=== PATIENT | female | born 2000 | race Caucasian/White ===

== ENCOUNTER 2022-04-16 14:56 | Inpatient (IN) | payer BC, SELFPAY ==
[2022-04-16 15:08] VITALS: BP 128/70; PULSE 65
--- NOTE | 2022-04-16 15:11 | ECG_ITS ---
Test Reason : MED CEARANCE Blood Pressure : / mmHG Vent. Rate : 060 BPM Atrial Rate : 060 BPM P-R Int : 144 ms QRS Dur : 102 ms QT Int : 406 ms P-R-T Axes : 060 070 053 degrees QTc Int : 406 ms Normal sinus rhythm with sinus arrhythmia Nonspecific ST and T wave abnormality Abnormal ECG No previous ECGs available Referred By: Prabha Cruz Electronically Signed By:ALBANIA ANDERSON MD
[2022-04-16 15:20] VITALS: BP 126/79; PULSE 70; RESP 16; TEMP 37.2; O2SAT 98; BMI 23.9
--- NOTE | 2022-04-16 16:06 | ED_ITS ---
HPI - Psych General Chief Complaint: Psychiatric Symptoms Stated Complaint: SI,SECTION 12 Time Seen by Provider: 04/16/22 15:05 Source: patient Mode of arrival: EMS Limitations: no limitations History of Present Illness HPI Narrative: patient is a 21-year-old female who presents to the emergency department via EMS on a Section 12 coming from [facility]. patient was evaluated by the psychologist at her school. She has been having increased depression and worsening suicidal ideations. She has a plan to overdose on her antidepressants; sertraline and lamotrigine. She states in the summer of 2020 she had a suicide attempt with overdosing on antidepressants. She sources social stressors in increasing feelings of loneliness. She does mention that her antidepressant dosages were decreased a few months ago. She reports occasional alcohol consumption, a few times a month. Smokes marijuana daily. R eports infrequent use of acid in she rooms. Also stating that she is snorting ketamine, has done this a few times this week. denies any hallucinations, homicidal ideations. Denies any physical complaints at this time. Related Data Allergies Allergy/AdvReac Type Severity Reaction Status Date / Time No Known Allergies Allergy Verified 04/16/22 15:11 Review of Systems Review of Systems: Constitutional : No Fever, No Chills ENT/Mouth : No Ear Pain, No Nasal Congestion, No sore throat Eyes: No Eye Pain, No Swelling, No Redness Cardiovascular : No Chest Pain, No SOB Respiratory : No Cough, No Sputum, No Dyspnea Gastrointestinal : No Nausea, No Vomiting, No Diarrhea, No Hematochezia, No Melena Genitourinary : No Dysuria, No Urinary Frequency, No Hematuria Musculoskeletal : No Myalgias Skin : No Skin Lesions, No rash Neuro : No Weakness, No Numbness, No Paresthesias, No Dizziness, No Headache Psych : positive Anxiety, positive Depression, positive SI/HI Heme/Lymph: No Lymphadenopathy Endocrine : No Polyuria, No Polydipsia Yes all other systems are reviewed and are negative [facility] Past Medical History Attestation statement: The following information was validated with the patient. Source: old records reviewed Social History Social History Alcohol intake: current Alcohol intake frequency: a few times a month Alcohol type: hard liquor Patient Tobacco Use Status: Never used Tobacco Smoked in Last 30 Days: No Use of substances other than those prescribed or required for medical reasons: Yes Substance Use Type: Hallucinogens, Marijuana and Tranquilizers Substance Use Frequency: Daily Advance Directives: No Advance Directives Information Provided: No Suicidal Behavior: History of suicide attemps Current/Past Psychiatric Disorders: Mood disorder, PTSD and Substance abuse Taylor Symptoms: Anxiety, Global insomia, Hopelessness, Impulsivity and Panic Access to Firearms: No Patient : No Physical Exam Vital Signs: Vital Signs: Last Vital Signs Temp 99.0 F 04/16/22 15:20 Pulse 70 04/16/22 15:20 Resp 16 04/16/22 15:20 BP 126/79 04/16/22 15:20 Pulse Ox 98 04/16/22 15:20 O2 Del Method 04/16/22 15:20 BMI result Body Mass Index 23.9 Vital signs have been reviewed as normal and appeared to be correct. Blood pressure normal.? Heart rate normal.? Respiration rate normal. Temperature normal.? Oxygen saturation normal. Appearance: Alert.?Oriented to person, place and time. No acute distress.?Normal affect. Eyes: Pupils equal, round and reactive to light.? ENT: Pharynx normal.?? Neck: Normal inspection.? Neck supple.?? CVS: Heart sounds normal. Normal heart rate and rhythm.? Pulses normal.?? Respiratory: No respiratory distress.? Lung sounds clear to auscultation bilaterally?? Abdomen: Soft and non-tender. Normoactive bowel sounds. Skin: Skin warm and dry.? Normal skin color.? Extremities: No lower extremity edema.? Neuro: Moves all extremities spontaneously. Sensation intact bilaterally. CN II- XII intact. No focal neuro deficits. Ambulates with normal steady gait. Course Course Course Narrative: Patient is a 21-year-old female with past medical history of depression presenting to emergency department on a Section evaluation of suicidal ideation with a plan. She is calming cooperative at the time of examination. She reports no for local complaints. Her vital signs are stable. Physical exam is unremarkable. Discussed with patient plan of care, will obtain basic labs, COVID - 19 screening, drug of abuse screen, and will refer to [facility] for evaluation/ safe disposition and to determine whether inpatient psychiatric services are required at this time. Patient is agreeable to plan of care. Reevaluation(s) Reevaluation #1: CBC is overall unremarkable. EKG reviewed at this time, normal sinus rhythm with sinus arrhythmia, QRS is prolonged; 102 ms, nonspecific ST and T-wave abnormality, CMP is unremarkable, electrolytes within normal limits. magnesium is normal. Will obtain EKG repeat in 1 hour. Drug of abuse screen is negative. Alcohol level not detectable. Time: 16:57 Reevaluation #2: QRS has improved, 92 ms, however she now has prolonged QT, QTC is 472 ms. patient denies any recreational drug usage over the past few days. Denies any overdose attempt to with her antidepressants. She does state it is possible she could have mixed up her pills because some of them look similar. Discussed plan of care with ED attending, Dr. Almazan, patient to receive magnesium 2 g IV, current magnesium level 1.8, will be moved from the pod to the main emergency department so she can be on a consumer affairs specialist. No chest pain, troponin is 3.5. Time: 17:39 Reevaluation #3: Patient signed out to Taj ARMENDARIZ, pending magnesium infusion and re- evaluation. Time: 18:02 [facility] - Psych Medical Records Attestation: I reviewed the patient's medical records. Lab Data Attestation: I reviewed the patient's lab results. Result diagrams: 04/16/22 16:16 04/16/22 16:16 Labs: Lab Results 04/16/22 04/16/22 04/16/22 Range/Units 15:57 15:57 15:57 WBC (4.8-10.8) X10*3/uL RBC (4.20-5.50) X10*6/uL Hgb (12.0-16.0) g/dl Hct (37.0-47.0) % MCV (80.0-98.0) fL MCH (27.0-33.0) pg MCHC (31.0-35.0) g/dl RDW (11.0-16.0) % Plt Count (160-400) X10*3/uL MPV (9.4-12.3) fL Immature Gran % (Auto) (0.0-0.4) % Neut % (Auto) (45-73) % Lymph % (Auto) (20-40) % [place] % (Auto) (2-11) % Eos % (Auto) (0-4) % Baso % (Auto) (0-2) % Lymph # (Auto) (1.2-4.9) X10*3/uL [place] # (Auto) (0.1-1.2) X10*3/uL Eos # (Auto) (0.0-0.4) X10*3/uL Baso # (Auto) (0.0-0.2) X10*3/uL Abs Immat Gran (auto) (0.00-0.03) X10*3/uL Absolute Neuts (auto) (2.0-8.3) x10*3/uL Absolute Nucleated RBC (0.0-0.012) X10*3/uL Nucleated RBC % (auto) (0.0-0.2) /100WBC Sodium (135-145) mmol/L Potassium (3.3-5.1) mmol/L Chloride (96-108) mmol/L Carbon Dioxide (22-29) mmol/L Anion Gap (12-20) BUN (9-16) mg/dL Creatinine (0.5-1.4) mg/dL Estim Creat Clear Calc Estimated GFR Random Glucose (60-115) mg/dL Calcium (8.4-10.2) mg/dL Magnesium (1.6-2.6) mg/dL Total Bilirubin (0.0-1.0) mg/dL AST (5-31) U/L ALT (0-31) U/L Alkaline Phosphatase (39-117) U/L Total Protein (6.5-8.0) g/dL Albumin (3.5-5.0) g/dL Urine Color Yellow Urine Appearance Clear Urine pH 5.5 (5.0-9.0) Ur Specific [place] 1.010 (1.005-1.025) Urine Protein Negative (Neg-Trace) mg/dL Urine Glucose (UA) Negative (Negative) mg/dL Urine Ketones Negative (Negative) mg/dL Urine Blood Negative (Negative) Urine Nitrite Negative (Negative) Ur Leukocyte Esterase Negative (Negative) Urine Opiates Screen Not Detected (Not Detect) Urine Fentanyl Screen Not Detected (Not Detect) Ur Barbiturates Screen Not Detected (Not Detect) Ur Phencyclidine Scrn Not Detected (Not Detect) Ur Amphetamines Screen Not Detected (Not Detect) U Benzodiazepines Scrn Not Detected (Not Detect) Urine Cocaine Screen Not Detected (Not Detect) U Marijuana (THC) Screen Not Detected (Not Detect) Ethyl Alcohol mg/dL COVID-19 (BRANDIN) Negative (Negative) COVID-19 Clin Com See Note 04/16/22 04/16/22 04/16/22 Range/Units 16:16 16:16 16:16 WBC 7.3 (4.8-10.8) X10*3/uL RBC 4.34 (4.20-5.50) X10*6/uL Hgb 11.9 L (12.0-16.0) g/dl Hct 38.5 (37.0-47.0) % MCV 88.7 (80.0-98.0) fL MCH 27.4 (27.0-33.0) pg MCHC 30.9 L (31.0-35.0) g/dl RDW 14.3 (11.0-16.0) % Plt Count 243 (160-400) X10*3/uL MPV 11.6 (9.4-12.3) fL Immature Gran % (Auto) 0.3 (0.0-0.4) % Neut % (Auto) 61.0 (45-73) % Lymph % (Auto) 33.2 (20-40) % [place] % (Auto) 4.8 (2-11) % Eos % (Auto) 0.4 (0-4) % Baso % (Auto) 0.3 (0-2) % Lymph # (Auto) 2.4 (1.2-4.9) X10*3/uL [place] # (Auto) 0.4 (0.1-1.2) X10*3/uL Eos # (Auto) 0.0 (0.0-0.4) X10*3/uL Baso # (Auto) 0.0 (0.0-0.2) X10*3/uL Abs Immat Gran (auto) 0.02 (0.00-0.03) X10*3/uL Absolute Neuts (auto) 4.5 (2.0-8.3) x10*3/uL Absolute Nucleated RBC 0.000 (0.0-0.012) X10*3/uL Nucleated RBC % (auto) 0.0 (0.0-0.2) /100WBC Sodium 140 (135-145) mmol/L Potassium 4.0 (3.3-5.1) mmol/L Chloride 104 (96-108) mmol/L Carbon Dioxide 23 (22-29) mmol/L Anion Gap 17 (12-20) BUN 9 (9-16) mg/dL Creatinine 0.79 (0.5-1.4) mg/dL Estim Creat Clear Calc 94.7 Estimated GFR > 60 Random Glucose 88 (60-115) mg/dL Calcium 9.7 (8.4-10.2) mg/dL Magnesium 1.8 (1.6-2.6) mg/dL Total Bilirubin 0.3 (0.0-1.0) mg/dL AST 23 (5-31) U/L ALT 11 (0-31) U/L Alkaline Phosphatase 70 (39-117) U/L Total Protein 8.1 H (6.5-8.0) g/dL Albumin 4.8 (3.5-5.0) g/dL Urine Color Urine Appearance Urine pH (5.0-9.0) Ur Specific [place] (1.005-1.025) Urine Protein (Neg-Trace) mg/dL Urine Glucose (UA) (Negative) mg/dL Urine Ketones (Negative) mg/dL Urine Blood (Negative) Urine Nitrite (Negative) Ur Leukocyte Esterase (Negative) Urine Opiates Screen (Not Detect) Urine Fentanyl Screen (Not Detect) Ur Barbiturates Screen (Not Detect) Ur Phencyclidine Scrn (Not Detect) Ur Amphetamines Screen (Not Detect) U Benzodiazepines Scrn (Not Detect) Urine Cocaine Screen (Not Detect) U Marijuana (THC) Screen (Not Detect) Ethyl Alcohol < 10 mg/dL COVID-19 (BRANDIN) (Negative) COVID-19 Clin Com ECG Data Attestation: I personally reviewed and interpreted this ECG as follows: ECG interpretation date: 04/16/22 Prior ECG tracings: not available for review Interpretation: Rate: 60 Rhythm:? normal sinus rhythm with sinus arrhythmia [place]:? normal Normal P waves.? Normal BEBE.?? wide QRS complex, [address] T wave :?? nonspecific ST, T wave abnormality. no ST elevation qTC: 406 prior studies:? no prior available for review The study has been interpreted contemporaneously by me. Discharge Plan Discharge Clinical Impression: Suicidal ideation, Prolonged QT interval Patient Disposition: Still a Patient
[2022-04-16 16:07] LABS: Appearance Urine Clear; Color Urine Yellow; Glucose Urine UA Negative (Negative); Leukocyte Esterase Urine Negative (Negative); Nitrite Urine Negative (Negative); PH 5.5 (5.0-9.0); Urine Blood Negative (Negative); Urine Ketones Negative (Negative); Urine Protein Negative (Neg-Trace)
[2022-04-16 16:21] LABS: MANUAL DIFF FLAG NO
[2022-04-16 16:22] LABS: Amphetamine Screen Urine Not Detected (Not Detect); Barbiturates, Urine Not Detected (Not Detect); Benzodiazepines Screen Urine Not Detected (Not Detect); Cannabinoid Screen Urine Not Detected (Not Detect); Cocaine Screen Urine Not Detected (Not Detect); Fentanyl, urine Not Detected (Not Detect); Opiate Screen Urine Not Detected (Not Detect); Phencyclidine Screen Urine Not Detected (Not Detect)
[2022-04-16 16:22] LABS: Basophils Percent Auto 0.3 % (0-2); Eosinophils Percent Auto 0.4 % (0-4); Hematocrit 38.5 % (37.0-47.0); Hemoglobin 11.9 g/dl (12.0-16.0); Imm Gran Abs Auto 0.02 X10*3/uL (0.00-0.03); Imm Gran Pct Auto 0.3 % (0.0-0.4); Lymphocytes Absolute Auto 2.4 X10*3/uL (1.2-4.9); Lymphocytes Percent Auto 33.2 % (20-40); Mean Corpuscular HGB Conc 30.9 g/dl (31.0-35.0); Mean Corpuscular Hemoglobin 27.4 pg (27.0-33.0); Mean Corpuscular Volume 88.7 fL (80.0-98.0); Mean Platelet Volume 11.6 fL (9.4-12.3); Monocytes Absolute Auto 0.4 X10*3/uL (0.1-1.2); Monocytes Percent Auto 4.8 % (2-11); Neutrophils Absolute Auto 4.5 x10*3/uL (2.0-8.3); Platelet Count 243 X10*3/uL (160-400); Red Blood Count 4.34 X10*6/uL (4.20-5.50); Red Cell Distribution Width 14.3 % (11.0-16.0); White Blood Count 7.3 X10*3/uL (4.8-10.8)
[2022-04-16 16:26] LABS: COVID-19 Test Negative (Negative); IDNOW Serial# 9DB6401D
[2022-04-16 16:56] LABS: Ethanol < 10 mg/dL
[2022-04-16 17:00] LABS: Alanine Aminotransferase 11 U/L (0-31); Albumin Level 4.8 g/dL (3.5-5.0); Alkaline Phosphatase 70 U/L (39-117); Anion Gap 17 (12-20); Aspartate Amino Transferase 23 U/L (5-31); Bilirubin Total 0.3 mg/dL (0.0-1.0); Blood Urea Nitrogen 9 mg/dL (9-16); Calcium 9.7 mg/dL (8.4-10.2); Carbon Dioxide 23 mmol/L (22-29); Chloride 104 mmol/L (96-108); Creatinine Clr Calc Pharmacy 94.7; Estimated Glomerular Filt Rate > 60; Glucose Random 88 mg/dL (60-115); Sodium 140 mmol/L (135-145); Total Protein 8.1 g/dL (6.5-8.0)
--- NOTE | 2022-04-16 17:30 | ECG_ITS ---
Test Reason : med clearance Blood Pressure : / mmHG Vent. Rate : 068 BPM Atrial Rate : 068 BPM P-R Int : 146 ms QRS Dur : 092 ms QT Int : 444 ms P-R-T Axes : 061 064 055 degrees QTc Int : 472 ms Normal sinus rhythm with sinus arrhythmia ST & T wave abnormality, consider anterolateral ischemia Prolonged QT Abnormal ECG When compared with ECG of 16-APR-2022 16:32, Inverted T waves have replaced nonspecific T wave abnormality in Anterior leads QT has lengthened Referred By: Prabha Cruz Electronically Signed By:ALBANIA ANDERSON MD
[2022-04-16 17:37] LABS: Magnesium 1.8 mg/dL (1.6-2.6)
[2022-04-16 17:47] LABS: Troponin-I High Sensitivity < 3.5 ng/L (<3.5-17.0)
[2022-04-16] MEDS: Magnesium Sulfate/H2O 2 GM/50 ML PIGGYBACK IV (18:28)
[2022-04-16 18:30] LABS: UPreg QC Valid YES; Urine Pregnancy NEGATIVE (NEGATIVE)
[2022-04-16 18:59] LABS: Acetaminophen LAB < 1 mcg/mL (<30); Salicylate < 5.0 mg/dL (15-30)
[2022-04-16 20:19] VITALS: BP 112/59; PULSE 74; RESP 16; TEMP 36.8; O2SAT 98
--- NOTE | 2022-04-16 20:27 | PC.NURSE ---
Pt alert and oriented, respirations even and unlabored. From behavioral pod moved to bed 17 for IV Magnesium. Reporting tightness in her chest with some improvement from onset.
--- NOTE | 2022-04-16 21:05 | ECG_ITS ---
Test Reason : OVERDOSE Blood Pressure : / mmHG Vent. Rate : 073 BPM Atrial Rate : 073 BPM P-R Int : 142 ms QRS Dur : 102 ms QT Int : 394 ms P-R-T Axes : 063 060 075 degrees QTc Int : 434 ms Normal sinus rhythm with sinus arrhythmia Nonspecific T wave abnormality Abnormal ECG When compared with ECG of 16-APR-2022 17:37, No significant change was found Referred By: Tiffani Jackson Electronically Signed By:ALBANIA ANDERSON MD
[2022-04-16 23:11] LABS: Lithium < 0.04 mmol/L (0.60-1.20)
--- NOTE | 2022-04-17 05:54 | PC.NURSE ---
Patient slept through the night, no distress observed/reported, behavior non concerning, med rec completed/pending provider's approval, disposition per care team is section 12 inpatient bed search, VSS, will continue to monitor.
[2022-04-17 06:16] VITALS: BP 100/59; PULSE 70; RESP 15; TEMP 36.9; O2SAT 99
[2022-04-17 09:11] VITALS: BP 102/54; PULSE 64; RESP 16; TEMP 36.8; O2SAT 97
--- NOTE | 2022-04-17 10:18 | PC.NURSE ---
PT IS A/O X 4 NO SOB/LESLY NOTED SKIN PINK WARM DRY SPEAKS IN FULL SENTENCES. PT SPOKE TO HER SUPPORT PERSON FROM [place] [employer] [facility]. PT CAME OUT OF HER ROOM AND IS EXPRESSING TO THIS RN THAT SHE WOULD RATHER BE AT HOME WITH HER FAMILY SUPPORT THAN TO BE HERE. PT WAS INFORMED THAT SHE IS SECT 12 AND THAT SHE IS AN INPATIENT BED SEARCH. PT IS TEARFUL. PT IS STATE THAT SHE WOULD LIKE TO SPEAK TO [employer] [employer] [facility]. THIS RN REACHED OUT TO THE CARE TEAM.
--- NOTE | 2022-04-17 10:23 | PC.NURSE ---
CARE TEAM (MARTIN) IS AT BEDSIDE, PT IS AWARE OF PLAN OF CARE.
--- NOTE | 2022-04-17 11:26 | PC.NURSE ---
RN TO RN REPORT GIVEN TO JAISON JAUREGUI AWARE OF PLAN OF CARE FOR INPATIENT BED.
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
--- NOTE | 2022-04-17 16:31 | PC.NURSE ---
patient indicates that she is not a smoker or tobacco user.
[2022-04-17 17:21] VITALS: BP 116/76; PULSE 75; RESP 18; TEMP 36.8; O2SAT 99
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
[2022-04-18 07:59] LABS: Alanine Aminotransferase 9 U/L (0-31); Albumin Level 4.3 g/dL (3.5-5.0); Alkaline Phosphatase 66 U/L (39-117); Anion Gap 14 (12-20); Aspartate Amino Transferase 21 U/L (5-31); Bilirubin Total 0.5 mg/dL (0.0-1.0); Blood Urea Nitrogen 9 mg/dL (9-16); Calcium 9.6 mg/dL (8.4-10.2); Carbon Dioxide 26 mmol/L (22-29); Chloride 104 mmol/L (96-108); Cholesterol 179 mg/dL; Creatinine Clr Calc Pharmacy 90.1; Estimated Glomerular Filt Rate > 60; Glucose Fasting 85 mg/dL (60-99); HDL Cholesterol 81 mg/dL; LDL Cholesterol Calculated 87 mg/dl; Potassium 4.4 mmol/L (3.3-5.1); Sodium 140 mmol/L (135-145); Total Protein 7.3 g/dL (6.5-8.0); Triglycerides 55 mg/dL
[2022-04-18 08:00] LABS: Estimated Average Glucose 88 mg/dL; Hemoglobin A1c % 4.7 %
[2022-04-18 08:15] LABS: Thyroid Stimulating Hormone 0.99 uIU/mL (0.32-4.0)
[2022-04-18] MEDS: Sertraline HCL 50 MG TABLET PO (10:22)
[2022-04-18] MEDS: lamoTRIgine 100 MG TABLET 300 MG PO (10:26)
--- NOTE | 2022-04-18 14:57 | P.PNPSI_ITS ---
Subjective Subjective Date of Service: 04/18/22 Reason For Visit: SI Interim History: calm, cooperative. feeling this has been a good respite for her, catching up on sleep, and food, and liquids. also eager to get back to school, was hoping for wednesday discharge. informed her wednesday is more likely, to which she responded, that's disappointing. she had been feeling overwhelmed before, and now doesn't no SI/SIBI. interested in referral for therapist who can see her weekly, as [facility] therapist can only see her every other week. per staff, pleasant overnight. declined 100 mg out of the 300 mg lamictal ordered for this morning, saying she only takes 200 mg. Mental Status Exam Mental Status Exam Narrative: Appearance:wearing hospital gown, good hygiene Behavior: superficially cooperative Psychomotor: no agitation or retardation noted Speech: clear, normal/rate/rhythm/volume, spontaneous TP: linear TC: no s/s of psychosis, wanting to be discharged soon Mood: better Affect: constricted HI: none expressed SI/SIBI: denies Insight/judgment: fair x 2 Memory/cog: alert, oriented x 3. Diagnostics Vital Signs (24Hr): Vital Signs - 24 hr 04/17/22 17:21 Temperature 98.2 F Pulse Rate 75 Respiratory Rate 18 Blood Pressure 116/76 Pulse Oximetry 99 Oxygen Delivery Method Room Air BMI result Body Mass Index 23.9 Labs Results: 04/16/22 16:16 04/18/22 07:20 Labs: Laboratory Results - last 48 hr 04/16/22 04/16/22 04/16/22 15:57 15:57 15:57 WBC RBC Hgb Hct MCV MCH MCHC RDW Plt Count MPV Immature Gran % (Auto) Neut % (Auto) Lymph % (Auto) Yates % (Auto) Eos % (Auto) Baso % (Auto) Lymph # (Auto) Yates # (Auto) Eos # (Auto) Baso # (Auto) Abs Immat Gran (auto) Absolute Neuts (auto) Absolute Nucleated RBC Nucleated RBC % (auto) Sodium Potassium Chloride Carbon Dioxide Anion Gap BUN Creatinine Estim Creat Clear Calc Estimated GFR Random Glucose Fasting Glucose Estimat Average Glucose Hemoglobin A1c % Calcium Magnesium Total Bilirubin AST ALT Alkaline Phosphatase Troponin I High Sens Total Protein Albumin Triglycerides Cholesterol LDL Cholesterol, Calc HDL Cholesterol TSH Urine Color Yellow Urine Appearance Clear Urine pH 5.5 Ur Specific [place] 1.010 Urine Protein Negative Urine Glucose (UA) Negative Urine Ketones Negative Urine Blood Negative Urine Nitrite Negative Ur Leukocyte Esterase Negative Urine Test Salicylates Urine Opiates Screen Not Detected Urine Fentanyl Screen Not Detected Acetaminophen Ur Barbiturates Screen Not Detected Ur Phencyclidine Scrn Not Detected Ur Amphetamines Screen Not Detected U Benzodiazepines Scrn Not Detected [place] Urine Cocaine Screen Not Detected U Marijuana (THC) Screen Not Detected Ethyl Alcohol COVID-19 (BRANDIN) Negative COVID-19 Clin Com See Note 04/16/22 04/16/22 04/16/22 16:00 16:16 16:16 WBC 7.3 RBC 4.34 Hgb 11.9 L Hct 38.5 MCV 88.7 MCH 27.4 MCHC 30.9 L RDW 14.3 Plt Count 243 MPV 11.6 Immature Gran % (Auto) 0.3 Neut % (Auto) 61.0 Lymph % (Auto) 33.2 Yates % (Auto) 4.8 Eos % (Auto) 0.4 Baso % (Auto) 0.3 Lymph # (Auto) 2.4 Yates # (Auto) 0.4 Eos # (Auto) 0.0 Baso # (Auto) 0.0 Abs Immat Gran (auto) 0.02 Absolute Neuts (auto) 4.5 Absolute Nucleated RBC 0.000 Nucleated RBC % (auto) 0.0 Sodium 140 Potassium 4.0 Chloride 104 Carbon Dioxide 23 Anion Gap 17 BUN 9 Creatinine 0.79 Estim Creat Clear Calc 94.7 Estimated GFR > 60 Random Glucose 88 Fasting Glucose Estimat Average Glucose Hemoglobin A1c % Calcium 9.7 Magnesium 1.8 Total Bilirubin 0.3 AST 23 ALT 11 Alkaline Phosphatase 70 Troponin I High Sens Total Protein 8.1 H Albumin 4.8 Triglycerides Cholesterol LDL Cholesterol, Calc HDL Cholesterol TSH Urine Color Urine Appearance Urine pH Ur Specific [place] Urine Protein Urine Glucose (UA) Urine Ketones Urine Blood Urine Nitrite Ur Leukocyte Esterase Urine Test NEGATIVE Salicylates < 5.0 L Urine Opiates Screen Urine Fentanyl Screen Acetaminophen < 1 Ur Barbiturates Screen Ur Phencyclidine Scrn Ur Amphetamines Screen U Benzodiazepines Scrn [place] Urine Cocaine Screen U Marijuana (THC) Screen Ethyl Alcohol COVID-19 (BRANDIN) COVID-19 Clin Com 04/16/22 04/16/22 04/16/22 16:16 16:16 21:28 WBC RBC Hgb Hct MCV MCH MCHC RDW Plt Count MPV Immature Gran % (Auto) Neut % (Auto) Lymph % (Auto) Yates % (Auto) Eos % (Auto) Baso % (Auto) Lymph # (Auto) Yates # (Auto) Eos # (Auto) Baso # (Auto) Abs Immat Gran (auto) Absolute Neuts (auto) Absolute Nucleated RBC Nucleated RBC % (auto) Sodium Potassium Chloride Carbon Dioxide Anion Gap BUN Creatinine Estim Creat Clear Calc Estimated GFR Random Glucose Fasting Glucose Estimat Average Glucose Hemoglobin A1c % Calcium Magnesium Total Bilirubin AST ALT Alkaline Phosphatase Troponin I High Sens < 3.5 Total Protein Albumin Triglycerides Cholesterol LDL Cholesterol, Calc HDL Cholesterol TSH Urine Color Urine Appearance Urine pH Ur Specific [place] Urine Protein Urine Glucose (UA) Urine Ketones Urine Blood Urine Nitrite Ur Leukocyte Esterase Urine Test Salicylates Urine Opiates Screen Urine Fentanyl Screen Acetaminophen Ur Barbiturates Screen Ur Phencyclidine Scrn Ur Amphetamines Screen U Benzodiazepines Scrn [place] < 0.04 L Urine Cocaine Screen U Marijuana (THC) Screen Ethyl Alcohol < 10 COVID-19 (BRANDIN) COVID-19 Clin Com 04/18/22 04/18/22 07:20 07:20 WBC RBC Hgb Hct MCV MCH MCHC RDW Plt Count MPV Immature Gran % (Auto) Neut % (Auto) Lymph % (Auto) Yates % (Auto) Eos % (Auto) Baso % (Auto) Lymph # (Auto) Yates # (Auto) Eos # (Auto) Baso # (Auto) Abs Immat Gran (auto) Absolute Neuts (auto) Absolute Nucleated RBC Nucleated RBC % (auto) Sodium 140 Potassium 4.4 Chloride 104 Carbon Dioxide 26 Anion Gap 14 BUN 9 Creatinine 0.83 Estim Creat Clear Calc 90.1 Estimated GFR > 60 Random Glucose Fasting Glucose 85 Estimat Average Glucose 88 Hemoglobin A1c % 4.7 Calcium 9.6 Magnesium Total Bilirubin 0.5 AST 21 ALT 9 Alkaline Phosphatase 66 Troponin I High Sens Total Protein 7.3 Albumin 4.3 Triglycerides 55 Cholesterol 179 LDL Cholesterol, Calc 87 HDL Cholesterol 81 TSH 0.99 Urine Color Urine Appearance Urine pH Ur Specific [place] Urine Protein Urine Glucose (UA) Urine Ketones Urine Blood Urine Nitrite Ur Leukocyte Esterase Urine Test Salicylates Urine Opiates Screen Urine Fentanyl Screen Acetaminophen Ur Barbiturates Screen Ur Phencyclidine Scrn Ur Amphetamines Screen U Benzodiazepines Scrn [place] Urine Cocaine Screen U Marijuana (THC) Screen Ethyl Alcohol COVID-19 (BRANDIN) COVID-19 Clin Com Medications Medications Current Medications Acetaminophen (Acetaminophen 325 Mg Tablet) 650 mg PO Q6H PRN PRN Reason: Headache/Pain Mild Scale (1-3) Al Hydroxide/Mg Hydroxide (Magnesium Hydrox/Alum Hydrox 30 Ml Oral.Susp) 30 ml PO Q6H PRN PRN Reason: Heartburn/Nausea Hydroxyzine HCl (Hydroxyzine Hcl 25 Mg Tablet) 25 mg PO Q6H PRN PRN Reason: Anxiety Lamotrigine (Lamotrigine 100 Mg Tablet) 200 mg PO DAILY NIKA Magnesium Hydroxide (Milk Of Magnesia 30 Ml Oral.Susp) 30 ml PO DAILY PRN PRN Reason: Constipation Non-Formulary Medication (Levonorgestrel-Ethinyl Estrad [Vienva]) 1 tab PO DAILY NIKA Sertraline HCl (Sertraline Hcl 50 Mg Tablet) 50 mg PO DAILY NIKA Last Admin: 04/18/22 10:22 Dose: 50 mg Trazodone HCl (Trazodone Hcl 50 Mg Tablet) 50 mg PO BEDTIME PRN PRN Reason: Insomnia Allergies Allergies Allergy/AdvReac Type Severity Reaction Status Date / Time No Known Allergies Allergy Verified 04/16/22 15:11 Assessment & Plan Assessment & Plan (1) Bipolar 2 disorder, major depressive episode: Status: Acute Code(s): F31.81 - Bipolar II disorder Plan Ms. Abad is a 21 year-old woman with hx of Bipolar type 2 disorder who came to [facility] after she disclose suicidal ideation with plan to OD to her therapist at [facility]. Pt denies SI/HI and asks to be discharged. However, pt appears to be minimizing recent reports and several concerns raised by her providers at [facility] and her mother who reports pt has not talked to her in almost a month. When asked about this, pt reports her relationship with mother is great, and many great things are happening to her. Meanwhile, she is very tearful, reports also feeling lonely. She minimizes situation also by stating that she missed few doses of her medications or that she smoked too much cannabis but her utox is negative. We discussed risks, benefits and alternative treatment options. PLAN 1. Admit to M3, sect 12, 15 minutes checks. 2. continue current medications 3. obtain collateral information 4. aftercare planning. 04/18: no change in mgmt. requesting DC KIAH and referral to therapist who can see her weekly. lamictal order changed to 200 mg daily to reflect pt's outpt regimen. I spent __15____ minutes with the patient and/or on the patient floor today, greater than?50% of which was spent counseling/coordinating care. Reason for contiued inpatient stay Substantial Risk for: harm to self
[2022-04-18 22:30] VITALS: BP 119/80; PULSE 71; RESP 16; TEMP 36.8; O2SAT 99
[2022-04-19 10:16] VITALS: BP 127/67; PULSE 78; RESP 16; TEMP 36.6; O2SAT 97
[2022-04-19] MEDS: Sertraline HCL 50 MG TABLET PO (10:17)
[2022-04-19] MEDS: lamoTRIgine 100 MG TABLET 200 MG PO (10:17)
--- NOTE | 2022-04-19 15:02 | HO.PSYCHPN ---
Subjective Subjective Date of Service: 04/19/22 Reason For Visit: SI Interim History: calm, cooperative, flexible affect. superficial, denying any real problems. had a good visit with her mother yesterday. per staff, slept well, ate well. feels safe. had been using ketamine [employer]. guarded. slept after 2229. Mental Status Exam Mental Status Exam Narrative: Appearance:wearing hospital gown, good hygiene Behavior: superficially cooperative Psychomotor: no agitation or retardation noted Speech: clear, normal/rate/rhythm/volume, spontaneous TP: linear TC: no s/s of psychosis, wanting to be discharged soon Mood: better Affect: constricted HI: none expressed SI/SIBI: denies Insight/judgment: fair x 2 Memory/cog: alert, oriented x 3. Diagnostics Vital Signs (24Hr): Vital Signs - 24 hr 04/18/22 22:30 04/19/22 10:16 Temperature 98.2 F 97.8 F Pulse Rate 71 78 Respiratory Rate 16 16 Blood Pressure 119/80 127/67 Pulse Oximetry 99 97 Oxygen Delivery Method Room Air Room Air BMI result Body Mass Index 23.9 Labs Results: 04/16/22 16:16 04/18/22 07:20 Labs: Laboratory Results - last 48 hr 04/18/22 04/18/22 07:20 07:20 Sodium 140 Potassium 4.4 Chloride 104 Carbon Dioxide 26 Anion Gap 14 BUN 9 Creatinine 0.83 Estim Creat Clear Calc 90.1 Estimated GFR > 60 Fasting Glucose 85 Estimat Average Glucose 88 Hemoglobin A1c % 4.7 Calcium 9.6 Total Bilirubin 0.5 AST 21 ALT 9 Alkaline Phosphatase 66 Total Protein 7.3 Albumin 4.3 Triglycerides 55 Cholesterol 179 LDL Cholesterol, Calc 87 HDL Cholesterol 81 TSH 0.99 Medications Medications Current Medications Acetaminophen (Acetaminophen 325 Mg Tablet) 650 mg PO Q6H PRN PRN Reason: Headache/Pain Mild Scale (1-3) Al Hydroxide/Mg Hydroxide (Magnesium Hydrox/Alum Hydrox 30 Ml Oral.Susp) 30 ml PO Q6H PRN PRN Reason: Heartburn/Nausea Hydroxyzine HCl (Hydroxyzine Hcl 25 Mg Tablet) 25 mg PO Q6H PRN PRN Reason: Anxiety Lamotrigine (Lamotrigine 100 Mg Tablet) 200 mg PO DAILY NIKA Last Admin: 04/19/22 10:17 Dose: 200 mg Magnesium Hydroxide (Milk Of Magnesia 30 Ml Oral.Susp) 30 ml PO DAILY PRN PRN Reason: Constipation Non-Formulary Medication (Levonorgestrel-Ethinyl Estrad [Vienva]) 1 tab PO DAILY NIKA Sertraline HCl (Sertraline Hcl 50 Mg Tablet) 50 mg PO DAILY NIKA Last Admin: 04/19/22 10:17 Dose: 50 mg Trazodone HCl (Trazodone Hcl 50 Mg Tablet) 50 mg PO BEDTIME PRN PRN Reason: Insomnia Allergies Allergies Allergy/AdvReac Type Severity Reaction Status Date / Time No Known Allergies Allergy Verified 04/16/22 15:11 Assessment & Plan Assessment & Plan (1) Bipolar 2 disorder, major depressive episode: Status: Acute Code(s): F31.81 - Bipolar II disorder Plan Ms. Abad is a 21 year-old woman with hx of Bipolar type 2 disorder who came to [facility] after she disclose suicidal ideation with plan to OD to her therapist at [facility]. Pt denies SI/HI and asks to be discharged. However, pt appears to be minimizing recent reports and several concerns raised by her providers at [facility] and her mother who reports pt has not talked to her in almost a month. When asked about this, pt reports her relationship with mother is great, and many great things are happening to her. Meanwhile, she is very tearful, reports also feeling lonely. She minimizes situation also by stating that she missed few doses of her medications or that she smoked too much cannabis but her utox is negative. We discussed risks, benefits and alternative treatment options. PLAN 1. Admit to M3, sect 12, 15 minutes checks. 2. continue current medications 3. obtain collateral information 4. aftercare planning. 04/18: no change in mgmt. requesting DC KIAH and referral to therapist who can see her weekly. lamictal order changed to 200 mg daily to reflect pt's outpt regimen. 04/19: continue current mgmt. hoping for DC KIAH. I spent ___15___ minutes with the patient and/or on the patient floor today, greater than?50% of which was spent counseling/coordinating care. Reason for contiued inpatient stay Substantial Risk for: harm to self
--- NOTE | 2022-04-20 08:55 | ECG_ITS ---
Test Reason : snorting ketamine Blood Pressure : / mmHG Vent. Rate : 063 BPM Atrial Rate : 063 BPM P-R Int : 156 ms QRS Dur : 100 ms QT Int : 374 ms P-R-T Axes : 063 070 -42 degrees QTc Int : 382 ms Normal sinus rhythm with sinus arrhythmia T wave abnormality, consider anterolateral ischemia Abnormal ECG When compared with ECG of 17-APR-2022 13:06, Nonspecific T wave abnormality now evident in Inferior leads T wave inversion now evident in Anterior leads Referred By: Prabha Cruz Electronically Signed By:ALBANIA ANDERSON MD
[2022-04-20 09:05] VITALS: BP 117/68; PULSE 77; RESP 17; TEMP 36.7; O2SAT 100
--- NOTE | 2022-04-20 09:33 | P.PNPSI_ITS ---
Subjective Subjective Date of Service: 04/20/22 Reason For Visit: SI Subjective Notes: Section 12B Interim History: Pt reports she feels calmer, less anxious. She reports sleeping and eating well. She reports feeling less overwhelmed about being here on the unit. She continues to denied SI/HI. Reports use of ketamine, educated on effects this substance on cardiac function (had qtc prolongation), mood. Medication Compliance: Yes Side effects from medications: No Review of Systems Review of Systems Constitutional : No Fever, No Chills ENT/Mouth : No Ear Pain, No Nasal Congestion, No sore throat Eyes: No Eye Pain, No Swelling, No Redness Cardiovascular : No Chest Pain, No SOB Respiratory : No Cough, No Sputum, No Dyspnea Gastrointestinal : No Nausea, No Vomiting, No Diarrhea, No Hematochezia, No Melena Genitourinary : No Dysuria, No Urinary Frequency, No Hematuria Musculoskeletal : No Myalgias Skin : No Skin Lesions, No rash Neuro : No Weakness, No Numbness, No Paresthesias, No Dizziness, No Headache Psych : positive Anxiety, positive Depression, positive SI/HI Heme/Lymph: No Lymphadenopathy Endocrine : No Polyuria, No Polydipsia Yes all other systems are reviewed and are negative Mental Status Exam Mental Status Exam Narrative: Appearance:wearing hospital gown, good hygiene Behavior: superficially cooperative Psychomotor: no agitation or retardation noted Speech: clear, normal/rate/rhythm/volume, spontaneous TP: linear TC: no s/s of psychosis, wanting to be discharged soon Mood: better Affect: constricted HI: none expressed SI/SIBI: denies Insight/judgment: fair x 2 Memory/cog: alert, oriented x 3. Diagnostics Vital Signs (24Hr): Vital Signs - 24 hr 04/20/22 20:02 04/21/22 09:13 Temperature 97.9 F 97.9 F Pulse Rate 67 69 Respiratory Rate 16 16 Blood Pressure 138/63 120/65 Pulse Oximetry 100 100 Oxygen Delivery Method Room Air Room Air BMI result Body Mass Index 23.9 Labs Results: 04/16/22 16:16 04/18/22 07:20 Labs: Laboratory Results - last 48 hr 04/18/22 07:20 Vitamin B12 376 Folate 18.7 Medications Medications Current Medications Acetaminophen (Acetaminophen 325 Mg Tablet) 650 mg PO Q6H PRN PRN Reason: Headache/Pain Mild Scale (1-3) Al Hydroxide/Mg Hydroxide (Magnesium Hydrox/Alum Hydrox 30 Ml Oral.Susp) 30 ml PO Q6H PRN PRN Reason: Heartburn/Nausea Hydroxyzine HCl (Hydroxyzine Hcl 25 Mg Tablet) 25 mg PO Q6H PRN PRN Reason: Anxiety Lamotrigine (Lamotrigine 100 Mg Tablet) 200 mg PO DAILY [facility] Last Admin: 04/21/22 09:15 Dose: 200 mg Magnesium Hydroxide (Milk Of Magnesia 30 Ml Oral.Susp) 30 ml PO DAILY PRN PRN Reason: Constipation Sertraline HCl (Sertraline Hcl 50 Mg Tablet) 50 mg PO DAILY [facility] Last Admin: 04/21/22 09:15 Dose: 50 mg Trazodone HCl (Trazodone Hcl 50 Mg Tablet) 50 mg PO BEDTIME PRN PRN Reason: Insomnia Allergies Allergies Allergy/AdvReac Type Severity Reaction Status Date / Time No Known Allergies Allergy Verified 04/16/22 15:11 Assessment & Plan Assessment & Plan (1) Bipolar 2 disorder, major depressive episode: Status: Acute Code(s): F31.81 - Bipolar II disorder Plan Ms. Abad is a 21 year-old woman with hx of Bipolar type 2 disorder who came to [facility] after she disclose suicidal ideation with plan to OD to her therapist at [facility]. Pt denies SI/HI and asks to be discharged. However, pt appears to be minimizing recent reports and several concerns raised by her providers at [facility] and her mother who reports pt has not talked to her in almost a month. When asked about this, pt reports her relationship with mother is great, and many great things are happening to her. Meanwhile, she is very tearful, reports also feeling lonely. She minimizes situation also by stating that she missed few doses of her medications or that she smoked too much cannabis but her utox is negative. We discussed risks, benefits and alternative treatment options. PLAN 1. Admit to M3, sect 12, 15 minutes checks. 2. continue current medications 3. obtain collateral information 4. aftercare planning. 04/18: no change in mgmt. requesting DC KIAH and referral to therapist who can see her weekly. lamictal order changed to 200 mg daily to reflect pt's outpt regimen. 04/19: continue current mgmt. hoping for DC KIAH. 04/20 continue tx. dc tomorrow. I spent minutes with the patient and/or on the patient floor today, greater than?50% of which was spent counseling/coordinating care. Reason for contiued inpatient stay Substantial Risk for: stable for discharge
[2022-04-20] MEDS: lamoTRIgine 100 MG TABLET 200 MG PO (09:36)
[2022-04-20] MEDS: Sertraline HCL 50 MG TABLET PO (09:36)
[2022-04-20 09:45] LABS: Folate 18.7 ng/mL (> or = 4.0); Vitamin B12 376 pg/mL (200-900)
[2022-04-20 20:02] VITALS: BP 138/63; PULSE 67; RESP 16; TEMP 36.6; O2SAT 100
[2022-04-21 09:13] VITALS: BP 120/65; PULSE 69; RESP 16; TEMP 36.6; O2SAT 100
[2022-04-21] MEDS: Sertraline HCL 50 MG TABLET PO (09:15)
[2022-04-21] MEDS: lamoTRIgine 100 MG TABLET 200 MG PO (09:15)
--- NOTE | 2022-04-21 09:46 | PM.PSYDC ---
DS: Providers Provider Date of Service: 04/21/22 Date of admission: 04/17/22 13:47 Primary care physician: Unknown Physician DS: Diagnosis Discharge Diagnosis (1) Bipolar 2 disorder, major depressive episode: Status: Acute DS: Medications Discharge Medications Home Medications: Home Medications Medication Instructions Recorded Confirmed levonorgestrel-ethinyl estradiol 1 tab PO DAILY 04/16/22 04/16/22 0.1 mg-20 mcg tablet (Vienva) Previous Rx's Medication Instructions Recorded lamotrigine 100 mg tablet 200 mg PO DAILY #60 tabs 04/21/22 sertraline 50 mg tablet 50 mg PO DAILY #30 tabs 04/21/22 Mental Status Exam Mental Status Exam Narrative: Appearance:casually groomed, good hygiene, in NAD Behavior: cooperative Psychomotor: no agitation or retardation noted Speech: clear, normal/rate/rhythm/volume, spontaneous TP: linear TC: no s/s of psychosis, wanting to be discharged soon Mood: better Affect: constricted HI: none expressed SI/SIBI: denies Insight/judgment: fair x 2 Memory/cog: alert, oriented x 3. Data Data Completed and Pending Completed studies during hospitalization [Text1]: 04/16/22 04/16/22 04/16/22 15:57 15:57 15:57 WBC RBC Hgb Hct MCV MCH MCHC RDW Plt Count MPV Immature Gran % (Auto) Neut % (Auto) Lymph % (Auto) [place] % (Auto) Eos % (Auto) Baso % (Auto) Lymph # (Auto) [place] # (Auto) Eos # (Auto) Baso # (Auto) Abs Immat Gran (auto) Absolute Neuts (auto) Absolute Nucleated RBC Nucleated RBC % (auto) Sodium Potassium Chloride Carbon Dioxide Anion Gap BUN Creatinine Estim Creat Clear Calc Estimated GFR Random Glucose Fasting Glucose Estimat Average Glucose Hemoglobin A1c % Calcium Magnesium Total Bilirubin AST ALT Alkaline Phosphatase Troponin I High Sens Total Protein Albumin Triglycerides Cholesterol LDL Cholesterol, Calc HDL Cholesterol Vitamin B12 Folate TSH Urine Color Yellow Urine Appearance Clear Urine pH 5.5 Ur Specific [place] 1.010 Urine Protein Negative Urine Glucose (UA) Negative Urine Ketones Negative Urine Blood Negative Urine Nitrite Negative Ur Leukocyte Esterase Negative Urine Test Salicylates Urine Opiates Screen Not Detected Urine Fentanyl Screen Not Detected Acetaminophen Ur Barbiturates Screen Not Detected Ur Phencyclidine Scrn Not Detected Ur Amphetamines Screen Not Detected U Benzodiazepines Scrn Not Detected [place] Urine Cocaine Screen Not Detected U Marijuana (THC) Screen Not Detected Ethyl Alcohol COVID-19 (BRANDIN) Negative COVID-19 Clin Com See Note 04/16/22 04/16/22 04/16/22 16:00 16:16 16:16 WBC 7.3 RBC 4.34 Hgb 11.9 L Hct 38.5 MCV 88.7 MCH 27.4 MCHC 30.9 L RDW 14.3 Plt Count 243 MPV 11.6 Immature Gran % (Auto) 0.3 Neut % (Auto) 61.0 Lymph % (Auto) 33.2 [place] % (Auto) 4.8 Eos % (Auto) 0.4 Baso % (Auto) 0.3 Lymph # (Auto) 2.4 [place] # (Auto) 0.4 Eos # (Auto) 0.0 Baso # (Auto) 0.0 Abs Immat Gran (auto) 0.02 Absolute Neuts (auto) 4.5 Absolute Nucleated RBC 0.000 Nucleated RBC % (auto) 0.0 Sodium 140 Potassium 4.0 Chloride 104 Carbon Dioxide 23 Anion Gap 17 BUN 9 Creatinine 0.79 Estim Creat Clear Calc 94.7 Estimated GFR > 60 Random Glucose 88 Fasting Glucose Estimat Average Glucose Hemoglobin A1c % Calcium 9.7 Magnesium 1.8 Total Bilirubin 0.3 AST 23 ALT 11 Alkaline Phosphatase 70 Troponin I High Sens Total Protein 8.1 H Albumin 4.8 Triglycerides Cholesterol LDL Cholesterol, Calc HDL Cholesterol Vitamin B12 Folate TSH Urine Color Urine Appearance Urine pH Ur Specific [place] Urine Protein Urine Glucose (UA) Urine Ketones Urine Blood Urine Nitrite Ur Leukocyte Esterase Urine Test NEGATIVE Salicylates < 5.0 L Urine Opiates Screen Urine Fentanyl Screen Acetaminophen < 1 Ur Barbiturates Screen Ur Phencyclidine Scrn Ur Amphetamines Screen U Benzodiazepines Scrn [place] Urine Cocaine Screen U Marijuana (THC) Screen Ethyl Alcohol COVID-19 (BRANDIN) COVID-19 Clin Com 04/16/22 04/16/22 04/16/22 16:16 16:16 21:28 WBC RBC Hgb Hct MCV MCH MCHC RDW Plt Count MPV Immature Gran % (Auto) Neut % (Auto) Lymph % (Auto) [place] % (Auto) Eos % (Auto) Baso % (Auto) Lymph # (Auto) [place] # (Auto) Eos # (Auto) Baso # (Auto) Abs Immat Gran (auto) Absolute Neuts (auto) Absolute Nucleated RBC Nucleated RBC % (auto) Sodium Potassium Chloride Carbon Dioxide Anion Gap BUN Creatinine Estim Creat Clear Calc Estimated GFR Random Glucose Fasting Glucose Estimat Average Glucose Hemoglobin A1c % Calcium Magnesium Total Bilirubin AST ALT Alkaline Phosphatase Troponin I High Sens < 3.5 Total Protein Albumin Triglycerides Cholesterol LDL Cholesterol, Calc HDL Cholesterol Vitamin B12 Folate TSH Urine Color Urine Appearance Urine pH Ur Specific [place] Urine Protein Urine Glucose (UA) Urine Ketones Urine Blood Urine Nitrite Ur Leukocyte Esterase Urine Test Salicylates Urine Opiates Screen Urine Fentanyl Screen Acetaminophen Ur Barbiturates Screen Ur Phencyclidine Scrn Ur Amphetamines Screen U Benzodiazepines Scrn [place] < 0.04 L Urine Cocaine Screen U Marijuana (THC) Screen Ethyl Alcohol < 10 COVID-19 (BRANDIN) COVID-[place] 04/18/22 04/18/22 04/18/22 07:20 07:20 07:20 WBC RBC Hgb Hct MCV MCH MCHC RDW Plt Count MPV Immature Gran % (Auto) Neut % (Auto) Lymph % (Auto) [place] % (Auto) Eos % (Auto) Baso % (Auto) Lymph # (Auto) [place] # (Auto) Eos # (Auto) Baso # (Auto) Abs Immat Gran (auto) Absolute Neuts (auto) Absolute Nucleated RBC Nucleated RBC % (auto) Sodium 140 Potassium 4.4 Chloride 104 Carbon Dioxide 26 Anion Gap 14 BUN 9 Creatinine 0.83 Estim Creat Clear Calc 90.1 Estimated GFR > 60 Random Glucose Fasting Glucose 85 Estimat Average Glucose 88 Hemoglobin A1c % 4.7 Calcium 9.6 Magnesium Total Bilirubin 0.5 AST 21 ALT 9 Alkaline Phosphatase 66 Troponin I High Sens Total Protein 7.3 Albumin 4.3 Triglycerides 55 Cholesterol 179 LDL Cholesterol, Calc 87 HDL Cholesterol 81 Vitamin B12 376 Folate 18.7 TSH 0.99 Urine Color Urine Appearance Urine pH Ur Specific [place] Urine Protein Urine Glucose (UA) Urine Ketones Urine Blood Urine Nitrite Ur Leukocyte Esterase Urine Test Salicylates Urine Opiates Screen Urine Fentanyl Screen Acetaminophen Ur Barbiturates Screen Ur Phencyclidine Scrn Ur Amphetamines Screen U Benzodiazepines Scrn [place] Urine Cocaine Screen U Marijuana (THC) Screen Ethyl Alcohol COVID-19 (BRANDIN) COVID-19 [employer] Com DS: Summary Hospital Course Hospital Course: HPI: Subjective Notes: Raman Warning and Section 12B Narrative: Ms. Abad is a 21 year-old woman with hx of Bipolar type 2 who self presented to [facility] after she met with her counselor at [facility] and reported suicidal ideation with plan to OD. Pt reports hx of suicidal ideation since she was 14 years old. Pt has hx of one suicide attempt last year when she OD on medications (unclear medical intervention required at the time). In the ED, utox is negative. Per care team crisis report, OP psychiatrist Dr. Barrientos called expressing concern as pt has been presenting as more depressed and withdrawn. It also appears that mother has been calling counseling services at [facility] expressing concern as pt has not communicated with mother for the past month, which mother reported is unusual. Pt presents as very tearful. She asks to be discharged back to campus as she has work to do. Pt denies any plan or intent to harm herself. Pt reports she thinks her depression related to not taking medication consistently but later reports she has only missed a few doses. She reports in the past month she has felt lonely. She reports she has a great relationship with mother. She minimizes reports of suicidal ideation she has made in past few days and concerns expressed by counselor and mother, stating I'm actually doing much better than in previous years, I have many things going on for me, my grades are good, I have prospect of fellowship. She reports having very supportive friends. She is not clear as to what change from day before, that now she feels great and without suicidal ideation. She denies hx of VH/AH. She reports she thinks maybe cannabis use may have affected her mood but her utox is negative. Past Psychiatric History: Inpatient: per crisis one previous admission in [place], but pt denies this OP: counseling services through [facility]. Suicide attempt: last summer OD on meds. Past med trials: sertraline, lithium, lamictal Medical Evaluation Reviewed: Yes HOSPITAL COURSE On the unit, pt admitted on a Sect 12, placed on 15 minutes checks for safety. Pt adamantly denied suicidal or homicidal ideation. She also seemed to minimize concerns that family and school reported. After discussing risks, benefits and alternative treatment options, pt agreed to continue medications including lamictal and sertraline which pt reported had been helpful in the past. Her affect gradually presented as brighter. She reported using ketamine with friends. She reported withdrawing from family, especially her mother and reaching out to therapist. She denied suicidal or homicidal ideation. She was sleeping and eating well. She was participating in groups and showed increase insight into symptoms of depression. There were no incidences of disruptive behaviors nor use of restraints. She agreed to continue OP psych tx. Collateral information gathered from therapist and family who denied safety concerns at time of discharge. Status at Discharge Cognitive/behavioral status at discharge: Pt with brighter, non labile affect. No SI/HI. No signs of AH/VH or delusional content. No signs of aggression towards self or others. Functional status at discharge: independent ambulation Overall status at discharge: patient is progressing back to baseline Time Spent with Patient Time attestation: Total time spent providing and/or coordinating discharge services: Time spent: Less than 30 minutes Discharge Plan Discharge Anticipated Discharge Date/Time: 04/21/22 09:42 Patient Disposition: Home Health Service Discharge Diagnosis: Bipolar type 2 Disorder Referrals: [facility] THERAPIST [Other] - 04/21/22 3:30 pm (ZOESTEFANI) ROLANDO AYALA. MEDICATION PROVIDER [Other] - 04/24/22 2:00 pm [facility] [Provider Group] - 1 Week (May use walk in service at [facility] as needed if in need of immediate attention) Discharge Medications: New sertraline 50 mg Tablet 50 mg PO DAILY Qty: 30 0RF lamotrigine 100 mg Tablet 200 mg PO DAILY Qty: 60 0RF Continued levonorgestrel-ethinyl estrad [Vienva] 0.1-20 mg-mcg tablet 1 tab PO DAILY Discontinued sertraline 50 mg tablet 1 tab PO DAILY lamotrigine 100 mg tablet 3 tab PO DAILY Discharge Orders: Discharge Order (Routine); Ordered 04/21/22 Ordered By: Lissy Moseley Diet: Regular diet Activity on Discharge: As tolerated Stand Alone Forms: Patient Portal Discharge page, Community Support Care Plan Goals: 1. No SI/HI 2. Maintain mood 3.No self harm to self or others. Health Concerns: Follow up with PCP Plan of Treatment: 1. Take medications as prescribed 2. Go to nearest ED or call 911 in event of emergency. Assessment: Pt with bright, non labile mood. No SI/HI. No VH/AH. Sleeping and eating well. No signs of aggression towards self or others. Discharge Date/Time: 04/21/22 15:00
[2022-04-21 10:51] LABS: COVID-19 Test Negative (Negative)
== END 2022-04-21 15:00 | disposition home health service (06) | DRG 753 ==
LOC: HO.ED 04-17 11:10 → HO.PADLT16 04-17 13:57
PROVIDERS: Nurse Practitioner Family; Physician Assistant; Physician Assistant Medical; Admitting Provider Psychiatry & Neurology Psychiatry; Emergency Provider Emergency Medicine; Visit Provider Social Worker
DX: F31.81 Bipolar II disorder (principal); R45.851 Suicidal ideations; Z20.822 Contact with and (suspected) exposure to COVID-19; Z91.51 Personal history of suicidal behavior; Z79.899 Other long term (current) drug therapy
CPT/HCPCS: 36415; 80053; 80061; 80143; 80178; 80179; 80307; 81003; 81025; 82077; 82607; 82746; 83036; 83735; 84443; 84484; 85025; 87635; 93005; 99285; J3475

== ENCOUNTER 2024-03-03 16:59 | Inpatient (IN) | payer BC, SELFPAY ==
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
[2024-03-03 17:19] VITALS: BP 112/76; BP 123/78; PULSE 60; PULSE 87; RESP 18; TEMP 36.6; O2SAT 100; O2SAT 99; BMI 22.1
--- NOTE | 2024-03-03 17:34 | ED.GENADULT ---
HPI - General Adult General Chief complaint: Psychiatric Symptoms Stated complaint: section 12, increased SI for past 10 days Time Seen by Provider: 03/03/24 17:34 Source: patient and EMS Mode of arrival: EMS Limitations: no limitations History of Present Illness ED Provider: Rosa Crowder PA-C HPI narrative: Patient is a 23 year old assigned female at with a history of bipolar disorder presenting to the emergency department today with suicidal ideation and a recent suicide attempt. Patient states that she has been having an increase in suicidal ideation and 10 days ago, attempted to drown herself. Patient denies any dizziness, lightheadedness, abdominal pain, nausea, vomiting, fever, chills, blurry vision, double vision, loss of vision, chest pain, difficulty breathing, shortness of breath, back pain, night sweats, pain with urination, increased urinary frequency, increased urinary urgency, blood in her urine or stool, syncope or a near syncopal episode, recent trauma or falls, bowel incontinence, bladder incontinence, or any other complaints at this time. Relieving factors: none Exacerbating factors: none Associated symptoms: denies other symptoms Treatments prior to arrival: none Related Data Previous Rx's ?Medication ?Instructions ?Recorded lamotrigine 100 mg tablet 200 mg (2 x 100 mg) PO DAILY #60 04/21/22 tabs sertraline 50 mg tablet 50 mg PO DAILY #30 tabs 04/21/22 Allergies Allergy/AdvReac Type Severity Reaction Status Date / Time No Known Allergies Allergy Verified 03/03/24 17:23 Review of Systems Constitutional: Constitutional: Reports no additional constitutional complaints, Denies chills, Denies fever(s) and Denies night sweats Eyes: Eyes: Reports no additional eye complaints, Denies blurry vision, Denies change in vision, Denies diplopia, Denies eye discharge, Denies loss of vision and Denies eye pain ENT: Denies dizziness Cardiovascular: Cardiovascular: Reports no additional cardiovascular complaints, Denies chest pain, Denies lightheadedness, Denies Loss of Consciousness and Denies dyspnea Respiratory: Respiratory: Reports no additional respiratory complaints and Denies dyspnea Gastrointestinal: Gastrointestinal: Reports no additional gastrointestinal complaints, Denies abdominal pain, Denies melena, Denies hematochezia, Denies change in bowel habits and Denies change in stool character Genitourinary: Genitourinary: Denies hematuria, Denies urinary frequency, Denies dysuria, Denies urinary incontinence, Denies urinary hesitancy and Denies urinary urgency Musculoskeletal: Musculoskeletal: Reports no additional musculoskeletal complaints, Denies numbness and Denies tingling Neurologic: Denies dizziness, Denies loss of vision, Denies numbness and Denies tingling Psychiatric: Psychiatric: Denies homicidal ideation and Reports suicidal ideation Endocrine: Endocrine: Reports no additional endocrine complaints Hematologic/Lymphatic: Hematologic/Lymphatic: Reports no additional hematologic/lymphatic complaints Allergic/Immunologic: Allergic/Immunologic: Reports no additional allergic/immunologic complaints [facility] Past Medical History Attestation statement: The following information was validated with the patient. Source: old records reviewed and nursing notes reviewed Social History Social History Household Members: Other Household Members Other:: Living in college dorm Do you presently have visiting nurse or other home services: No Alcohol intake: current Alcohol intake frequency: holidays/special occasions only Alcohol type: hard liquor Patient Tobacco Use Status: Never used Tobacco Smoked in Last 30 Days: No Use of substances other than those prescribed or required for medical reasons: Yes Substance Use Type: Marijuana Advance Directives: No Advance Directives Information Provided: No Patient : No service: No Sexual orientation: Bisexual Physical Exam ED Vital Signs: Vital Signs - 24 hr 03/03/24 17:19 03/03/24 18:00 Temperature 97.8 F 97.8 F Pulse Rate 87 87 Respiratory Rate 18 18 Blood Pressure 123/78 123/78 Pulse Oximetry 99 99 Oxygen Delivery Method Room Air Room Air BMI result Body Mass Index 22.1 Const General: cooperative, no acute distress, alert and awake Nutritional Appearance: well nourished Orientation/consciousness: patient oriented x3 Limitations: no limitations HENMT Head: Yes normal to inspection and Yes atraumatic Ears: hearing grossly normal bilaterally and external ears normal General nose exam: Normal external nose present, no nasal discharge noted and no epistaxis Face and sinus: Yes normal facial exam, No abrasion and No laceration Mouth: Normal oral and palatal mucosa present, no drooling and no muffled voice Eyes General: appearance normal, both eyes and all related structures Periorbital: periorbital findings normal Eyelids: Yes eyelids normal Conjunctivae: conjunctivae normal Pupils: Equal, round and reactive pupils present EOM: EOMs intact bilaterally Neck Neck: Yes normal visual inspection, Yes full ROM and Yes no lymphadenopathy Chest Chest palpation & inspection: normal inspection of the chest Resp Effort & Inspection: normal respiratory effort and able to speak in complete sentences GI Inspection: Yes normal to inspection Neuro General: patient oriented x3 and moves all extremities Cranial nerves: Yes Equal, round and reactive pupils present Cognition (Neuro): normal cognition Extrem General: Yes normal to inspection, Yes full ROM and Yes capillary refill normal Psych Appearance: grossly normal Mental Status: mental status grossly normal Attitude: Guarded attititude/behavior present Thought content: Suicidality present Medical Decision Making Medical Decision Making MDM Narrative: Patient is a 23 year old assigned female at with a history of bipolar disorder presenting to the emergency department today with suicidal ideation. Patient's physical exam was as noted in the physical exam portion of this note. Patient's blood work was unremarkable. Patient's urine showed no acute process. Patient was evaluated by the CARE team who recommended inpatient level of care. I explained my physical exam findings as well as all test results to the patient. I answered all questions asked by the patient. Patient remains in the POD portion of the emergency department as she awaits psychiatric admission or transfer to an appropriate inpatient psychiatric facility. Differential Diagnosis Differential Diagnoses: The differential diagnosis associated with the presentation includes Suicidal ideation Recent suicide attempt Admission/Observation Consideration of admission/observation: Escalation of care including admission/observation considered Patient to be admitted for psychiatric inpatient level of care or transferred to an appropriate inpatient psychiatric facility. Consult Healthcare Provider Management of the patient was discussed with: Behavioral Health Provider (spoke to the CARE team as noted in the MDM Rationale portion of this note.) Lab Data [facility] Lab Attestation statement: I reviewed the patient's lab results. My interpretation of these results are in the MDM Rationale portion of this note. 03/03/24 17:52 03/03/24 17:52 Labs: Lab Results 03/03/24 03/03/24 Range/Units 17:41 17:52 WBC 9.4 (4.8-10.8) X10*3/uL RBC 3.90 L (4.20-5.50) X10*6/uL Hgb 12.4 (12.0-16.0) g/dl Hct 37.5 (37.0-47.0) % MCV 96.2 (80.0-98.0) fL MCH 31.8 (27.0-33.0) pg MCHC 33.1 (31.0-35.0) g/dl RDW 13.4 (11.0-16.0) % Plt Count 225 (160-400) X10*3/uL MPV 11.5 (9.4-12.3) fL Immature Gran % (Auto) 0.8 H (0.0-0.4) % Neut % (Auto) 73.3 H (45-73) % Lymph % (Auto) 21.0 (20-40) % [place] % (Auto) 4.4 (2-11) % Eos % (Auto) 0.2 (0-4) % Baso % (Auto) 0.3 (0-2) % Lymph # (Auto) 2.0 (1.2-4.9) X10*3/uL [place] # (Auto) 0.4 (0.1-1.2) X10*3/uL Eos # (Auto) 0.0 (0.0-0.4) X10*3/uL Baso # (Auto) 0.0 (0.0-0.2) X10*3/uL Abs Immat Gran (auto) 0.08 H (0.00-0.03) X10*3/uL Absolute Neuts (auto) 6.9 (2.0-8.3) x10*3/uL Absolute Nucleated RBC 0.000 (0.0-0.012) X10*3/uL Nucleated RBC % (auto) 0.0 (0.0-0.2) /100WBC Sodium 138 (135-145) mmol/L Potassium 3.7 (3.3-5.1) mmol/L Chloride 111 H (96-108) mmol/L Carbon Dioxide 20 L (22-29) mmol/L Anion Gap 11 L (12-20) BUN 6 L (9-16) mg/dL Creatinine 0.71 (0.5-1.4) mg/dL Estim Creat Clear Calc 103.6 Estimated GFR > 60 Random Glucose 131 H (60-115) mg/dL Calcium 8.9 D (8.4-10.2) mg/dL Total Bilirubin 0.7 (0.0-1.0) mg/dL AST 21 (5-31) U/L ALT 14 (0-31) U/L Alkaline Phosphatase 52 (39-117) U/L Total Protein 7.0 (6.5-8.0) g/dL Albumin 4.1 (3.5-5.0) g/dL Urine Color Yellow Urine Appearance Clear Urine pH 6.0 (5.0-9.0) Ur Specific [place] <= 1.005 (1.005-1.025) Urine Protein Negative (Neg-Trace) mg/dL Urine Glucose (UA) Negative (Negative) mg/dL Urine Ketones Negative (Negative) mg/dL Urine Blood Negative (Negative) Urine Nitrite Negative (Negative) Ur Leukocyte Esterase Trace H (Negative) Urine RBC 0-2 (0-2) /HPF Urine WBC 6-10 H (0-5) /HPF Ur Squamous Epith Cells 11-20 (0-2) /HPF Urine Bacteria Trace (None Seen) Hyaline Casts 0-2 (0-2) /LPF Urine Test NEGATIVE (NEGATIVE) Urine Opiates Screen Not Detected (Not Detect) Ur Buprenorphine Scrn Not Detected (Not Detect) ng/mL Ur Oxycodone Screen Not Detected (Not Detect) ng/mL Urine Methadone Screen Not Detected (Not Detect) ng/mL Urine Fentanyl Screen Not Detected (Not Detect) Ur Barbiturates Screen Not Detected (Not Detect) Ur Phencyclidine Scrn Not Detected (Not Detect) Ur Amphetamines Screen Not Detected (Not Detect) U Benzodiazepines Scrn Not Detected (Not Detect) [place] < 0.10 L (0.60-1.20) mmol/L Urine Cocaine Screen Not Detected (Not Detect) U Marijuana (THC) Screen Not Detected (Not Detect) Ethyl Alcohol < 10 mg/dL Independent Historian Clinical information obtained from an independent historian. History obtained from or confirmed by: EMS (EMS provided additional history and confirmed the history provided by the patient.) Discharge Plan Discharge Clinical Impression: Suicidal ideation Patient Disposition: Still a Patient Prescriptions: No Action sertraline 50 mg Tablet 50 mg PO DAILY Qty: 30 0RF lamotrigine 100 mg Tablet 200 mg PO DAILY Qty: 60 0RF Interventions: [place]-Suicide Risk Severity Scale Last Done: 03/03/24 17:23 Print Language: Omani
[2024-03-03 17:58] LABS: MANUAL DIFF FLAG NO
[2024-03-03 18:00] VITALS: BP 123/78; PULSE 87; RESP 18; TEMP 36.6; O2SAT 99
[2024-03-03 18:07] LABS: Appearance Urine Clear; Color Urine Yellow; Glucose Urine UA Negative (Negative); Leukocyte Esterase Urine Trace (Negative); Nitrite Urine Negative (Negative); Specific Gravity - Urine <= 1.005 (1.005-1.025); UMIC TRIGGER UACC YES; Urine Blood Negative (Negative); Urine Ketones Negative (Negative); Urine Protein Negative (Neg-Trace)
[2024-03-03 18:09] LABS: UPreg QC Valid YES; Urine Pregnancy NEGATIVE (NEGATIVE)
[2024-03-03 18:12] LABS: Lithium < 0.10 mmol/L (0.60-1.20)
[2024-03-03 18:17] LABS: Bacteria Urine Trace (None Seen); Hyaline Casts Urine 0-2 /LPF (0-2); RBC Urine 0-2 /HPF (0-2); UACC Culture Trigger YES
[2024-03-03 18:18] LABS: Amphetamine Screen Urine Not Detected (Not Detect); Barbiturates, Urine Not Detected (Not Detect); Benzodiazepines Screen Urine Not Detected (Not Detect); Buprenorphine Scr Not Detected (Not Detect); Cannabinoid Screen Urine Not Detected (Not Detect); Cocaine Screen Urine Not Detected (Not Detect); Fentanyl, urine Not Detected (Not Detect); Methadone Screen, Urine Not Detected (Not Detect); Opiate Screen Urine Not Detected (Not Detect); Oxycodone Screen Urine Not Detected (Not Detect); Phencyclidine Screen Urine Not Detected (Not Detect)
[2024-03-03 18:18] LABS: Ethanol < 10 mg/dL
[2024-03-03 18:20] LABS: Alanine Aminotransferase 14 U/L (0-31); Albumin Level 4.1 g/dL (3.5-5.0); Alkaline Phosphatase 52 U/L (39-117); Anion Gap 11 (12-20); Aspartate Amino Transferase 21 U/L (5-31); Bilirubin Total 0.7 mg/dL (0.0-1.0); Blood Urea Nitrogen 6 mg/dL (9-16); Calcium 8.9 mg/dL (8.4-10.2); Carbon Dioxide 20 mmol/L (22-29); Chloride 111 mmol/L (96-108); Creatinine Clr Calc Pharmacy 103.6; Estimated Glomerular Filt Rate > 60; Glucose Random 131 mg/dL (60-115); Potassium 3.7 mmol/L (3.3-5.1); Sodium 138 mmol/L (135-145)
[2024-03-03 18:27] LABS: Basophils Percent Auto 0.3 % (0-2); Eosinophils Percent Auto 0.2 % (0-4); Hematocrit 37.5 % (37.0-47.0); Hemoglobin 12.4 g/dl (12.0-16.0); Imm Gran Abs Auto 0.08 X10*3/uL (0.00-0.03); Imm Gran Pct Auto 0.8 % (0.0-0.4); Mean Corpuscular HGB Conc 33.1 g/dl (31.0-35.0); Mean Corpuscular Hemoglobin 31.8 pg (27.0-33.0); Mean Corpuscular Volume 96.2 fL (80.0-98.0); Mean Platelet Volume 11.5 fL (9.4-12.3); Monocytes Absolute Auto 0.4 X10*3/uL (0.1-1.2); Monocytes Percent Auto 4.4 % (2-11); Neutrophils Absolute Auto 6.9 x10*3/uL (2.0-8.3); Neutrophils Percent Auto 73.3 % (45-73); Platelet Count 225 X10*3/uL (160-400); Red Cell Distribution Width 13.4 % (11.0-16.0); White Blood Count 9.4 X10*3/uL (4.8-10.8)
[2024-03-03 23:50] VITALS: BP 121/69; PULSE 79; RESP 15; TEMP 36.8; O2SAT 98
[2024-03-04 00:18] VITALS: BMI 21.8
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
[2024-03-04 08:00] VITALS: BP 117/62; PULSE 68; RESP 18; TEMP 36.6; O2SAT 99
[2024-03-04 08:04] LABS: Estimated Average Glucose 80 mg/dL; Hemoglobin A1c % 4.4 % (<6.0)
[2024-03-04 08:19] LABS: Cholesterol 122 mg/dL (<200); HDL Cholesterol 69 mg/dL (>40); LDL Cholesterol Calculated 46 mg/dL (<100); Magnesium 1.9 mg/dL (1.6-2.6); Triglycerides 39 mg/dL (<150)
[2024-03-04 08:31] LABS: Thyroid Stimulating Hormone 1.92 uIU/mL (0.32-4.0)
[2024-03-04 08:41] LABS: Folate 14.2 ng/mL (> or = 4.0); Vitamin B12 461 pg/mL (200-900)
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
[2024-03-04 20:00] VITALS: BP 121/71; PULSE 85; RESP 18; TEMP 36.9; O2SAT 97
[2024-03-04] MEDS: Acetaminophen 325 MG TABLET 650 MG PO (20:49)
[2024-03-05 08:00] VITALS: BP 123/66; PULSE 67; RESP 18; TEMP 36.5; O2SAT 99
[2024-03-05] MEDS: Acetaminophen 325 MG TABLET 650 MG PO (08:36)
[2024-03-05] MEDS: Docusate Sodium 100 MG CAPSULE PO (12:35)
--- NOTE | 2024-03-05 16:15 | P.PNPSI_ITS ---
Subjective Subjective Date of Service: 03/05/24 Reason For Visit: Bipolar Disorder Subjective Notes: Conditional Voluntary and 3 Day Healthcare Proxy: No Guardianship: No Medical Problems Affecting Mental Status: No Interim History: Pt seen, reviewed with team. urine culture positive for strep b. amoxicillin initiated [facility] requested Visits from boyfriend last evening and today and friends from school. Mood is brigher, pt feeling supported by her peer group. Medication Compliance: No Side effects from medications: No Attending Groups: Intermittent Review of Systems Acute medical concerns: No UTI Medical Review of Systems: unchanged Review of Systems Review of Systems UTI Mental Status Exam Mental Status Exam Patient Appearance: Appropriate Patient Orientation: Person, Place, Time and Situation Level of Consciousness: Alert Patient Behavior: Appropriate, Talkative, Cooperative and Good Eye Contact Mood Description: Constricted Affect Description: Constricted Patient Cognition Impaired: No Ability to Follow Directions: Good Speech Pattern: Spontaneous Speech Memory Description: Intact Hallucinations: None Delusions: Not Present Thought Process: Distracted Thought Content: positive for Circumstantial, positive for Perseveration and positive for Suicidal Ideation (denies) Depressive Symptoms: Increased Fatigue and Thoughts of /Suicide (denies) Judgement: Fair Diagnostics Vital Signs (24Hr): Vital Signs - 24 hr 03/04/24 20:00 03/05/24 08:00 Temperature 98.5 F 97.7 F Pulse Rate 85 67 Respiratory Rate 18 18 Blood Pressure 121/71 123/66 Pulse Oximetry 97 99 Oxygen Delivery Method Room Air Room Air BMI result Body Mass Index 21.8 Labs 03/03/24 17:52 03/03/24 17:52 Labs: Laboratory Results - last 48 hr 03/03/24 03/03/24 03/04/24 17:41 17:52 07:40 WBC 9.4 RBC 3.90 L Hgb 12.4 Hct 37.5 MCV 96.2 MCH 31.8 MCHC 33.1 RDW 13.4 Plt Count 225 MPV 11.5 Immature Gran % (Auto) 0.8 H Neut % (Auto) 73.3 H Lymph % (Auto) 21.0 [place] % (Auto) 4.4 Eos % (Auto) 0.2 Baso % (Auto) 0.3 Lymph # (Auto) 2.0 [place] # (Auto) 0.4 Eos # (Auto) 0.0 Baso # (Auto) 0.0 Abs Immat Gran (auto) 0.08 H Absolute Neuts (auto) 6.9 Absolute Nucleated RBC 0.000 Nucleated RBC % (auto) 0.0 Sodium 138 Potassium 3.7 Chloride 111 H Carbon Dioxide 20 L Anion Gap 11 L BUN 6 L Creatinine 0.71 Estim Creat Clear Calc 103.6 Estimated GFR > 60 Random Glucose 131 H Estimat Average Glucose 80 Hemoglobin A1c % 4.4 Calcium 8.9 D Magnesium 1.9 Total Bilirubin 0.7 AST 21 ALT 14 Alkaline Phosphatase 52 Total Protein 7.0 Albumin 4.1 Triglycerides 39 Cholesterol 122 LDL Cholesterol, Calc 46 HDL Cholesterol 69 Vitamin B12 461 Folate 14.2 TSH 1.92 Free T4 1.30 Urine Color Yellow Urine Appearance Clear Urine pH 6.0 Ur Specific [place] <= 1.005 Urine Protein Negative Urine Glucose (UA) Negative Urine Ketones Negative Urine Blood Negative Urine Nitrite Negative Ur Leukocyte Esterase Trace H Urine RBC 0-2 Urine WBC 6-10 H Ur Squamous Epith Cells 11-20 Urine Bacteria Trace Hyaline Casts 0-2 Urine Test NEGATIVE Urine Opiates Screen Not Detected Ur Buprenorphine Scrn Not Detected Ur Oxycodone Screen Not Detected Urine Methadone Screen Not Detected Urine Fentanyl Screen Not Detected Ur Barbiturates Screen Not Detected Ur Phencyclidine Scrn Not Detected Ur Amphetamines Screen Not Detected U Benzodiazepines Scrn Not Detected [place] < 0.10 L Urine Cocaine Screen Not Detected U Marijuana (THC) Screen Not Detected Ethyl Alcohol < 10 Medications Medications Current Medications Acetaminophen (Acetaminophen 325 Mg Tablet) 650 mg PO Q6H PRN PRN Reason: Headache/Pain Mild Scale (1-3) Last Admin: 03/05/24 08:36 Dose: 650 mg Al Hydroxide/Mg Hydroxide (Magnesium Hydrox/Alum Hydrox 30 Ml Oral.Susp) 30 ml PO Q6H PRN PRN Reason: Heartburn/Nausea Docusate Sodium (Docusate Sodium 100 Mg Capsule) 100 mg PO BID PRN PRN Reason: Constipation Last Admin: 03/05/24 12:35 Dose: 100 mg Hydroxyzine HCl (Hydroxyzine Hcl 25 Mg Tablet) 25 mg PO Q6H PRN PRN Reason: Anxiety Lorazepam (Lorazepam 0.5 Mg Tablet) 0.5 mg PO Q6H PRN PRN Reason: anxiety, agitation Magnesium Hydroxide (Milk Of Magnesia 30 Ml Oral.Susp) 30 ml PO DAILY PRN PRN Reason: Constipation Nicotine (Nicotine 21 Mg Patch.Td24) 21 mg TRANSDERMA DAILY PRN PRN Reason: nicotine cravings Nicotine Polacrilex (Nicotine Polacrilex 2 Mg Gum) 4 mg BUCCAL Q2H PRN PRN Reason: Nicotine Cravings Trazodone HCl (Trazodone Hcl 50 Mg Tablet) 50 mg PO BEDTIME MRX1 PRN PRN Reason: Insomnia Allergies Allergies Allergy/AdvReac Type Severity Reaction Status Date / Time No Known Allergies Allergy Verified 03/03/24 17:23 Assessment & Plan Assessment & Plan (1) PTSD (post-traumatic stress disorder): Status: Acute Code(s): F43.10 - Post-traumatic stress disorder, unspecified (2) Bipolar 2 disorder, major depressive episode: Status: Acute Code(s): F31.81 - Bipolar II disorder Plan 03/05/24 Amoxicillin for UTI ordered Patient educated on: medical condition Reason for continued inpatient stay Substantial Risk for: harm to self and rapid decompensation Time Spent With Patient Time: Total time managing care of this patient today ____ minutes.
[2024-03-05] MEDS: Amoxicillin 500 MG CAPSULE PO (17:40)
[2024-03-05 20:00] VITALS: BP 132/61; PULSE 123; RESP 16; TEMP 36.7
[2024-03-06] MEDS: hydrOXYzine HCL 25 MG TABLET PO (00:18)
[2024-03-06] MEDS: Amoxicillin 500 MG CAPSULE PO ×3 (00:18→17:14)
[2024-03-06 07:48] VITALS: BP 94/57; PULSE 82; RESP 18; TEMP 37; O2SAT 98
--- NOTE | 2024-03-06 08:33 | HO.PSYCHPN ---
Subjective Subjective Date of Service: 03/06/24 Reason For Visit: Bipolar Disorder Subjective Notes: Conditional Voluntary and 3 Day Healthcare Proxy: No Guardianship: No Medical Problems Affecting Mental Status: No Interim History: Pt reporting vaginal irritation. gynelotrimin ordered. Pt is anxious to discharge. We have discussed that several things need to occur for this to happen in coordination with [facility] and she should not expect discharge on 03/07. Denies sx. Declines medications. Of note, VP PLATFORMS pt refused to safety plan with [facility] team which I have told her may hold up her discharge until they are feeling comfortable with her ability to contract and plan for safety. Medication Compliance: No Attending Groups: Intermittent Review of Systems Review of Systems Yes all other systems are reviewed and are negative Mental Status Exam Mental Status Exam Patient Appearance: Appropriate Patient Orientation: Person, Place, Time and Situation Level of Consciousness: Alert Patient Behavior: Appropriate, Talkative, Cooperative and Good Eye Contact Mood Description: Constricted Affect Description: Constricted Patient Cognition Impaired: No Ability to Follow Directions: Good Speech Pattern: Spontaneous Speech Memory Description: Intact Hallucinations: None Delusions: Not Present Thought Process: Distracted Thought Content: positive for Circumstantial, positive for Perseveration and positive for Suicidal Ideation (denies) Depressive Symptoms: Increased Fatigue and Thoughts of /Suicide (denies) Judgement: Fair Diagnostics Vital Signs (24Hr): Vital Signs - 24 hr 03/05/24 20:00 03/06/24 07:48 Temperature 98.0 F 98.6 F Pulse Rate 123 H 82 Respiratory Rate 16 18 Blood Pressure 132/61 94/57 L Pulse Oximetry 98 Oxygen Delivery Method Room Air Room Air BMI result Body Mass Index 21.8 Labs 03/03/24 17:52 03/03/24 17:52 Labs: Laboratory Results - last 48 hr 03/04/24 07:40 Vitamin B12 461 Folate 14.2 Medications Medications Current Medications Acetaminophen (Acetaminophen 325 Mg Tablet) 650 mg PO Q6H PRN PRN Reason: Headache/Pain Mild Scale (1-3) Last Admin: 03/05/24 08:36 Dose: 650 mg Al Hydroxide/Mg Hydroxide (Magnesium Hydrox/Alum Hydrox 30 Ml Oral.Susp) 30 ml PO Q6H PRN PRN Reason: Heartburn/Nausea Amoxicillin (Amoxicillin 500 Mg Capsule) 500 mg PO Q8H NIKA Stop: 03/13/24 17:59 Last Admin: 03/06/24 00:18 Dose: 500 mg Docusate Sodium (Docusate Sodium 100 Mg Capsule) 100 mg PO BID PRN PRN Reason: Constipation Last Admin: 03/05/24 12:35 Dose: 100 mg Hydroxyzine HCl (Hydroxyzine Hcl 25 Mg Tablet) 25 mg PO Q6H PRN PRN Reason: Anxiety Last Admin: 03/06/24 00:18 Dose: 25 mg Lorazepam (Lorazepam 0.5 Mg Tablet) 0.5 mg PO Q6H PRN PRN Reason: anxiety, agitation Magnesium Hydroxide (Milk Of Magnesia 30 Ml Oral.Susp) 30 ml PO DAILY PRN PRN Reason: Constipation Nicotine (Nicotine 21 Mg Patch.Td24) 21 mg TRANSDERMA DAILY PRN PRN Reason: nicotine cravings Nicotine Polacrilex (Nicotine Polacrilex 2 Mg Gum) 4 mg BUCCAL Q2H PRN PRN Reason: Nicotine Cravings Trazodone HCl (Trazodone Hcl 50 Mg Tablet) 50 mg PO BEDTIME MRX1 PRN PRN Reason: Insomnia Allergies Allergies Allergy/AdvReac Type Severity Reaction Status Date / Time No Known Allergies Allergy Verified 03/03/24 17:23 Assessment & Plan Assessment & Plan (1) PTSD (post-traumatic stress disorder): Status: Acute Code(s): F43.10 - Post-traumatic stress disorder, unspecified (2) Bipolar 2 disorder, major depressive episode: Status: Acute Code(s): F31.81 - Bipolar II disorder Plan 03/05/24 Amoxicillin for UTI ordered 03/06/24 Gynelotrimin for vaginal itching Pt asking for discharge. Reason for continued inpatient stay Substantial Risk for: harm to self and rapid decompensation Time Spent With Patient Time: Total time managing care of this patient today ____ minutes.
[2024-03-06 08:47] LABS: Iron 85 mcg/dL (30-160); Percent Iron Saturation 29 % (15-50); Total Iron Binding Capacity 295 mcg/dL (228-428); Unsaturated Iron Binding 210 ug/dL
[2024-03-06] MEDS: Acetaminophen 325 MG TABLET 650 MG PO (17:14)
[2024-03-06 19:39] VITALS: BP 120/67; PULSE 65; RESP 18; TEMP 36.6; O2SAT 100
[2024-03-06] MEDS: Clotrimazole 1 % Vaginal Cream 45 GM TUBE 1 APPL VAGINAL (22:00)
[2024-03-07] MEDS: Amoxicillin 500 MG CAPSULE PO ×4 (01:00→20:36)
[2024-03-07 08:00] VITALS: BP 110/74; PULSE 89; RESP 16; TEMP 36.6; O2SAT 99
[2024-03-07] MEDS: Acetaminophen 325 MG TABLET 650 MG PO ×2 (09:37→20:36)
--- NOTE | 2024-03-07 11:28 | P.PNPSI_ITS ---
Subjective Subjective Date of Service: 03/07/24 Reason For Visit: Bipolar Disorder Subjective Notes: 3 Day Interim History: Reviewed with Dr. Rodriguez. Pt reports she feels ready to get back to school ; requesting to be discharged prior to 3 day being due. Discussed coordination with [facility] needs to occur. Pt continues to decline medications for mood. 3 day up on 03/09/24. Medication Compliance: Yes Side effects from medications: No Review of Systems Review of Systems UTI Mental Status Exam Mental Status Exam Patient Appearance: Appropriate Patient Orientation: Person, Place, Time and Situation Level of Consciousness: Alert Patient Behavior: Appropriate, Cooperative and Good Eye Contact Mood Description: Constricted Affect Description: Constricted Patient Cognition Impaired: No Ability to Follow Directions: Good Speech Pattern: Spontaneous Speech Memory Description: Intact Diagnostics Vital Signs (24Hr): Vital Signs - 24 hr 03/06/24 19:39 Temperature 98 F Pulse Rate 65 Respiratory Rate 18 Blood Pressure 120/67 Pulse Oximetry 100 BMI result Body Mass Index 21.8 Labs 03/03/24 17:52 03/03/24 17:52 Labs: Laboratory Results - last 48 hr 03/06/24 08:16 Iron 85 TIBC 295 % Saturation 29 Unsat Iron Binding 210 Medications Medications Current Medications Acetaminophen (Acetaminophen 325 Mg Tablet) 650 mg PO Q6H PRN PRN Reason: Headache/Pain Mild Scale (1-3) Last Admin: 03/07/24 09:37 Dose: 650 mg Al Hydroxide/Mg Hydroxide (Magnesium Hydrox/Alum Hydrox 30 Ml Oral.Susp) 30 ml PO Q6H PRN PRN Reason: Heartburn/Nausea Amoxicillin (Amoxicillin 500 Mg Capsule) 500 mg PO TID NIKA Stop: 03/13/24 17:59 Last Admin: 03/07/24 11:17 Dose: 500 mg Clotrimazole (Clotrimazole 1 % Vaginal Cream 45 Gm Tube) 1 appl VAGINAL BEDTIME NIKA Stop: 03/12/24 21:01 Last Admin: 03/06/24 22:00 Dose: 1 appl Docusate Sodium (Docusate Sodium 100 Mg Capsule) 100 mg PO BID PRN PRN Reason: Constipation Last Admin: 03/05/24 12:35 Dose: 100 mg Hydroxyzine HCl (Hydroxyzine Hcl 25 Mg Tablet) 25 mg PO Q6H PRN PRN Reason: Anxiety Last Admin: 03/06/24 00:18 Dose: 25 mg Lorazepam (Lorazepam 0.5 Mg Tablet) 0.5 mg PO Q6H PRN PRN Reason: anxiety, agitation Magnesium Hydroxide (Milk Of Magnesia 30 Ml Oral.Susp) 30 ml PO DAILY PRN PRN Reason: Constipation Nicotine (Nicotine 21 Mg Patch.Td24) 21 mg TRANSDERMA DAILY PRN PRN Reason: nicotine cravings Nicotine Polacrilex (Nicotine Polacrilex 2 Mg Gum) 4 mg BUCCAL Q2H PRN PRN Reason: Nicotine Cravings Trazodone HCl (Trazodone Hcl 50 Mg Tablet) 50 mg PO BEDTIME MRX1 PRN PRN Reason: Insomnia Allergies Allergies Allergy/AdvReac Type Severity Reaction Status Date / Time No Known Allergies Allergy Verified 03/03/24 17:23 Assessment & Plan Assessment & Plan (1) PTSD (post-traumatic stress disorder): Status: Acute Code(s): F43.10 - Post-traumatic stress disorder, unspecified (2) Bipolar 2 disorder, major depressive episode: Status: Acute Code(s): F31.81 - Bipolar II disorder Plan 03/05/24 Amoxicillin for UTI ordered 03/06/24 Gynelotrimin for vaginal itching Pt asking for discharge. 03/07: Pt reports she feels ready to get back to school ; requesting to be discharged prior to 3 day being due. Discussed coordination with [facility] needs to occur. Pt continues to decline medications for mood. 3 day up on 03/09/24. Continue current tx plan. Patient educated on: diagnosis and medication risk/benefits Reason for continued inpatient stay Substantial Risk for: med/psych decompensation Time Spent With Patient Time: Total time managing care of this patient today _20___ minutes.
[2024-03-07 20:00] VITALS: BP 122/78; PULSE 93; RESP 17; TEMP 36.6; O2SAT 97
[2024-03-08 08:00] VITALS: BP 134/56; PULSE 102; TEMP 36.4; O2SAT 98
[2024-03-08] MEDS: Acetaminophen 325 MG TABLET 650 MG PO ×2 (09:01→14:58)
[2024-03-08] MEDS: Amoxicillin 500 MG CAPSULE PO ×3 (09:01→20:47)
--- NOTE | 2024-03-08 09:56 | P.PNPSI_ITS ---
Subjective Subjective Date of Service: 03/08/24 Reason For Visit: Bipolar Disorder Subjective Notes: 3 Day Interim History: Reviewed with Dr. Rodriguez. Pt reports feeling good and excited to go back to school ; pt stated, I have a great support system. My anxiety and depression are minimal. I plan on following up with the counseling center and working with my [facility] on campus to build my coping skills . Pt denies SI/HI/VH/AH. 3 day up on 03/09/24. Pt to return back to campus. Medication Compliance: Yes Side effects from medications: No Attending Groups: Yes Review of Systems Review of Systems UTI Mental Status Exam Mental Status Exam Narrative: Pt is alert and oriented; behavior is cooperative, friendly and calm; dressed in casual attire; mood is described as good ; eye contact appropriate; Speech is normal rate, volume and not pressured; thought process is organized and goal directed; Thought content is on tx; denies SI/HI/VH/AH. Diagnostics Vital Signs (24Hr): Vital Signs - 24 hr 03/07/24 20:00 03/08/24 08:00 Temperature 97.8 F 97.5 F Pulse Rate 93 102 H Respiratory Rate 17 Blood Pressure 122/78 134/56 L Pulse Oximetry 97 98 Oxygen Delivery Method Room Air Room Air BMI result Body Mass Index 21.8 Labs 03/03/24 17:52 03/03/24 17:52 Medications Medications Current Medications Acetaminophen (Acetaminophen 325 Mg Tablet) 650 mg PO Q6H PRN PRN Reason: Headache/Pain Mild Scale (1-3) Last Admin: 03/08/24 09:01 Dose: 650 mg Al Hydroxide/Mg Hydroxide (Magnesium Hydrox/Alum Hydrox 30 Ml Oral.Susp) 30 ml PO Q6H PRN PRN Reason: Heartburn/Nausea Amoxicillin (Amoxicillin 500 Mg Capsule) 500 mg PO TID NIKA Stop: 03/13/24 17:59 Last Admin: 03/08/24 09:01 Dose: 500 mg Clotrimazole (Clotrimazole 1 % Vaginal Cream 45 Gm Tube) 1 appl VAGINAL BEDTIME NIKA Stop: 03/12/24 21:01 Last Admin: 03/08/24 01:26 Dose: Not Given Docusate Sodium (Docusate Sodium 100 Mg Capsule) 100 mg PO BID PRN PRN Reason: Constipation Last Admin: 03/05/24 12:35 Dose: 100 mg Hydroxyzine HCl (Hydroxyzine Hcl 25 Mg Tablet) 25 mg PO Q6H PRN PRN Reason: Anxiety Last Admin: 03/06/24 00:18 Dose: 25 mg Lorazepam (Lorazepam 0.5 Mg Tablet) 0.5 mg PO Q6H PRN PRN Reason: anxiety, agitation Magnesium Hydroxide (Milk Of Magnesia 30 Ml Oral.Susp) 30 ml PO DAILY PRN PRN Reason: Constipation Nicotine (Nicotine 21 Mg Patch.Td24) 21 mg TRANSDERMA DAILY PRN PRN Reason: nicotine cravings Nicotine Polacrilex (Nicotine Polacrilex 2 Mg Gum) 4 mg BUCCAL Q2H PRN PRN Reason: Nicotine Cravings Trazodone HCl (Trazodone Hcl 50 Mg Tablet) 50 mg PO BEDTIME MRX1 PRN PRN Reason: Insomnia Allergies Allergies Allergy/AdvReac Type Severity Reaction Status Date / Time No Known Allergies Allergy Verified 03/03/24 17:23 Assessment & Plan Assessment & Plan (1) PTSD (post-traumatic stress disorder): Status: Acute Code(s): F43.10 - Post-traumatic stress disorder, unspecified (2) Bipolar 2 disorder, major depressive episode: Status: Acute Code(s): F31.81 - Bipolar II disorder Plan 03/05/24 Amoxicillin for UTI ordered 03/06/24 Gynelotrimin for vaginal itching Pt asking for discharge. 03/07: Pt reports she feels ready to get back to school ; requesting to be discharged prior to 3 day being due. Discussed coordination with [facility] needs to occur. Pt continues to decline medications for mood. 3 day up on 03/09/24. Continue current tx plan. 03/08: Pt reports feeling good and excited to go back to school ; pt stated, I have a great support system. My anxiety and depression are minimal. I plan on following up with the counseling center and working with my [facility] on campus to build my coping skills . Pt denies SI/HI/VH/AH. 3 day up on 03/09/24. Pt to return back to campus. Patient educated on: diagnosis, medication risk/benefits and therapeutic strategies Reason for continued inpatient stay Substantial Risk for: stable for discharge Time Spent With Patient Time: Total time managing care of this patient today _20___ minutes.
[2024-03-08] MEDS: Ibuprofen 600 MG TABLET PO ×2 (10:32→20:47)
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
[2024-03-08 19:36] VITALS: BP 136/65; PULSE 66; RESP 16; TEMP 37.2; O2SAT 98
[2024-03-09 07:00] VITALS: BMI 21.9
[2024-03-09 07:48] VITALS: BP 132/79; PULSE 66; RESP 19; TEMP 36.9; O2SAT 100
[2024-03-09] MEDS: Ibuprofen 600 MG TABLET PO (08:10)
[2024-03-09] MEDS: Amoxicillin 500 MG CAPSULE PO (08:10)
--- NOTE | 2024-03-09 12:31 | P.DS_ITS ---
DS: Providers Provider Date of admission: 03/03/24 22:18 Primary care physician: None Physician DS: Diagnosis Discharge Diagnosis (1) PTSD (post-traumatic stress disorder): Status: Acute (2) Bipolar 2 disorder, major depressive episode: Status: Acute DS: Medications Discharge Medications Home Medications: Previous Rx's ?Medication ?Instructions ?Recorded amoxicillin 500 mg capsule 500 mg PO TID 4 days #12 caps 03/08/24 clotrimazole 1 % vaginal cream 1 appl vaginal BEDTIME 4 days #45 03/08/24 grams Data Data Completed and Pending Completed studies during hospitalization [Text1]: 03/03/24 03/03/24 03/04/24 17:41 17:52 07:40 WBC 9.4 RBC 3.90 L Hgb 12.4 Hct 37.5 MCV 96.2 MCH 31.8 MCHC 33.1 RDW 13.4 Plt Count 225 MPV 11.5 Immature Gran % (Auto) 0.8 H Neut % (Auto) 73.3 H Lymph % (Auto) 21.0 Morton % (Auto) 4.4 Eos % (Auto) 0.2 Baso % (Auto) 0.3 Lymph # (Auto) 2.0 Morton # (Auto) 0.4 Eos # (Auto) 0.0 Baso # (Auto) 0.0 Abs Immat Gran (auto) 0.08 H Absolute Neuts (auto) 6.9 Absolute Nucleated RBC 0.000 Nucleated RBC % (auto) 0.0 Sodium 138 Potassium 3.7 Chloride 111 H Carbon Dioxide 20 L Anion Gap 11 L BUN 6 L Creatinine 0.71 Estim Creat Clear Calc 103.6 Estimated GFR > 60 Random Glucose 131 H Estimat Average Glucose 80 Hemoglobin A1c % 4.4 Calcium 8.9 D Magnesium 1.9 Iron TIBC % Saturation Unsat Iron Binding Total Bilirubin 0.7 AST 21 ALT 14 Alkaline Phosphatase 52 Total Protein 7.0 Albumin 4.1 Triglycerides 39 Cholesterol 122 LDL Cholesterol, Calc 46 HDL Cholesterol 69 Vitamin B12 461 Folate 14.2 TSH 1.92 Free T4 1.30 Urine Color Yellow Urine Appearance Clear Urine pH 6.0 Ur Specific [place] <= 1.005 Urine Protein Negative Urine Glucose (UA) Negative Urine Ketones Negative Urine Blood Negative Urine Nitrite Negative Ur Leukocyte Esterase Trace H Urine RBC 0-2 Urine WBC 6-10 H Ur Squamous Epith Cells 11-20 Urine Bacteria Trace Hyaline Casts 0-2 Urine Test NEGATIVE Urine Opiates Screen Not Detected Ur Buprenorphine Scrn Not Detected Ur Oxycodone Screen Not Detected Urine Methadone Screen Not Detected Urine Fentanyl Screen Not Detected Ur Barbiturates Screen Not Detected Ur Phencyclidine Scrn Not Detected Ur Amphetamines Screen Not Detected U Benzodiazepines Scrn Not Detected [place] < 0.10 L Urine Cocaine Screen Not Detected U Marijuana (THC) Screen Not Detected Ethyl Alcohol < 10 03/06/24 08:16 WBC RBC Hgb Hct MCV MCH MCHC RDW Plt Count MPV Immature Gran % (Auto) Neut % (Auto) Lymph % (Auto) [place] % (Auto) Eos % (Auto) Baso % (Auto) Lymph # (Auto) [place] # (Auto) Eos # (Auto) Baso # (Auto) Abs Immat Gran (auto) Absolute Neuts (auto) Absolute Nucleated RBC Nucleated RBC % (auto) Sodium Potassium Chloride Carbon Dioxide Anion Gap BUN Creatinine Estim Creat Clear Calc Estimated GFR Random Glucose Estimat Average Glucose Hemoglobin A1c % Calcium Magnesium Iron 85 TIBC 295 % Saturation 29 Unsat Iron Binding 210 Total Bilirubin AST ALT Alkaline Phosphatase Total Protein Albumin Triglycerides Cholesterol LDL Cholesterol, Calc HDL Cholesterol Vitamin B12 Folate TSH Free T4 Urine Color Urine Appearance Urine pH Ur Specific [place] Urine Protein Urine Glucose (UA) Urine Ketones Urine Blood Urine Nitrite Ur Leukocyte Esterase Urine RBC Urine WBC Ur Squamous Epith Cells Urine Bacteria Hyaline Casts Urine Test Urine Opiates Screen Ur Buprenorphine Scrn Ur Oxycodone Screen Urine Methadone Screen Urine Fentanyl Screen Ur Barbiturates Screen Ur Phencyclidine Scrn Ur Amphetamines Screen U Benzodiazepines Scrn [place] Urine Cocaine Screen U Marijuana (THC) Screen Ethyl Alcohol 03/03/24 17:41 Urine clean catch - Clean Catch Midstream Urine Culture - Final Strep agalactiae (Grp B) DS: Summary Hospital Course Hospital Course: 23 yo female, hx of PTSD, Bipolar Disorder, student of [employer], to ER for increase in SI with plans to overdose, walk into traffic for one week. Joan pham called staff to report concerns for pt's safety RN CLINICAL REVIEW. When campus team met with pt she confirmed and denied her safety. She refused to make a safety plan with the campus so was sent to hospital. Boyfriend also reported pt attempted to drown herself in the ocean last week but had police intervention. 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 During this time she decided to estrange herself from mother and is currently homeless. She stayed with friends but emotionally, crashed . When she returned to campus she felt more support, however most of her supports had not returned yet. She identifies therapy, meeting with the [facility] as support and wants to engage with case mgt, financial planning and counseling. Reports her friends, course work and college atmosphere help her to feel in her best of health and looks forward to her return. She is considering [facility] for added support and hopes to discharge [facility] to return to campus. As far as safety planning, pt has the following thoughts: she will return to dorm, lives on the same floor as her friends with other close friends nearby. She will make a list of people she can contact, including boyfriend who is very supportive and flying back to campus today. States there is nothing in her room that she can harm herself with. She has a good relationship with her CDC, Akash who checks in with her, they walk his dog and she will work with the counseling center on further safety planning. Plan: Admit to M5, CV, 15 minute checks Pt declines medications Iron Profile for 03/07 Collateral Contacts Diagnostics as needed Pt requests discharge [facility] Pt seen, reviewed with team. urine culture positive for strep b. amoxicillin initiated Colace requested Visits from boyfriend last evening and today and friends from school. Mood is brigher, pt feeling supported by her peer group. Pt reporting vaginal irritation. gynelotrimin ordered. Pt is anxious to discharge. We have discussed that several things need to occur for this to happen in coordination with [facility] and she should not expect discharge on 03/07. Denies sx. Declines medications. Of note, RN CLINICAL REVIEW pt refused to safety plan with [facility] team which I have told her may hold up her discharge until they are feeling comfortable with her ability to contract and plan for safety. Pt reports she feels ready to get back to school ; requesting to be discharged prior to 3 day being due. Discussed coordination with [facility] needs to occur. Pt continues to decline medications for mood. 3 day up on 03/09/24. Continue current tx plan. Pt reports feeling good and excited to go back to school ; pt stated, I have a great support system. My anxiety and depression are minimal. I plan on following up with the counseling center and working with my [facility] on campus to build my coping skills . Pt denies SI/HI/VH/AH. 3 day up on 03/09/24. Pt to return back to campus. Time Spent with Patient Time attestation: Total time managing care of this patient today ____ minutes. Discharge Plan Discharge Anticipated Discharge Date/Time: 03/09/24 11:00 Patient Disposition: Home, Self-Care Discharge Diagnosis: Bipolar d/o, PTSD Referrals: Counseling Check-in with Carol Aguilar [Other] - 03/10/24 11:00 am (Remote appt. She will send you a link.) Counseling with [facility] [Other] - 03/13/24 1:30 pm (Remote appt. She will send you a link.) [facility] [Other] - 03/16/24 8:30 am () Discharge Medications: New amoxicillin 500 mg Capsule 500 mg PO TID 4 Days Qty: 12 0RF clotrimazole 1 % Cream 1 appl vaginal BEDTIME 4 Days Qty: 45 0RF Discharge Orders: Discharge Order (Routine); Ordered 03/09/24 Ordered By: Marita Abraham Diet: Regular diet Activity on Discharge: As tolerated Stand Alone Forms: Patient Portal Discharge page, Community Support Print Language: Greenlandic Care Plan Goals: Maintain mood and safe behaviors Take medications as prescribed Practice coping skills Continue with outpatient providers and reach out to them as needed Health Concerns: Mood stability and behaviors Plan of Treatment: Follow up with your PCP, psychiatric provider and other outpatient providers regarding above concerns Take medications as prescribed Assessment: Patient was interviewed prior to discharge and found to be fully oriented and without SI or HI. Patient has insight and demonstrates good judgment in terms of wanting to pursue treatment. Patient has a safety plan that includes presenting to the closest ER or calling 911 if feeling unsafe. Discharge Date/Time: 03/09/24 10:34
== END 2024-03-09 10:34 | disposition home or self-care (01) | DRG 753 ==
LOC: HO.ED 20:20 → HO.PM5 22:42
PROVIDERS: Physician Assistant Medical; Admitting Provider Clinical Nurse Specialist Psychiatric/Mental Health, Adult; Emergency Provider Emergency Medicine Emergency Medical Services; Visit Provider Clinical Nurse Specialist Psychiatric/Mental Health, Adult
DX: F31.81 Bipolar II disorder (principal); R45.851 Suicidal ideations; F43.10 Post-traumatic stress disorder, unspecified; Z91.51 Personal history of suicidal behavior; Z62.810 Personal history of physical and sexual abuse in childhood
CPT/HCPCS: 36415; 80053; 80061; 80178; 80307; 81001; 81025; 82607; 82746; 83036; 83540; 83735; 84439; 84443; 85025; 87086; 87147; 99285; S9485

== ENCOUNTER → 2024-03-03 22:18 | Outpatient (BNV) | payer BC, SELFPAY | PROVIDERS: Admitting Provider Clinical Nurse Specialist Psychiatric/Mental Health, Adult; Emergency Provider Emergency Medicine Emergency Medical Services; Visit Provider Clinical Nurse Specialist Psychiatric/Mental Health, Adult | DX: F31.81 Bipolar II disorder (principal); F43.11 Post-traumatic stress disorder, acute | CPT/HCPCS: 90792; 99231; 99232; 99238 ==